=== PATIENT | female | born 1960 | race Caucasian/White ===

== ENCOUNTER → 2016-10-09 | Outpatient (CLI) | payer BC ==
[2016-10-09 15:30] LABS: Magnesium 1.9 mg/dL (1.6-2.3)
[2016-10-09 21:17] LABS: Hemoglobin A1C 5.2 % (4.2-6.1)
== END | disposition home or self-care (01) ==
LOC: LABWHC1 14:49
PROVIDERS: ATTEND Family Medicine
DX: Z00.00 Encounter for general adult medical examination without abnormal findings (principal); E55.9 Vitamin D deficiency, unspecified; E78.5 Hyperlipidemia, unspecified; E16.1 Other hypoglycemia; E83.42 Hypomagnesemia
CPT/HCPCS: 36415; 82306; 82550; 83036; 83525; 83735; 84443; 84450; 84460

== ENCOUNTER 2017-12-28 15:10 | Inpatient (IN) | payer BC, OTHER ==
[2017-12-28] MEDS ORDERED: SODIUM CHLORIDE 0.9% 1,000 ML IV ONE ×3 (15:42→17:34)
[2017-12-28 16:07] LABS: Basophils % (A) 0 %; Eosinophils % (A) 0 %; HCT 42.3 % (34.0-46.0); HGB 14.3 gm/dL (11.4-16.0); Lymphocytes # (A) 1.2 k/uL (1.0-4.8); Lymphocytes % (A) 8 %; MCH 32.3 pg (25.0-35.0); MCHC 33.9 g/dL (31.0-37.0); MCV 95.1 fL (80.0-100.0); Mean Platelet Volume 7.6; Monocytes # (A) 0.5 k/uL (0-1.0); Monocytes % (A) 3 %; Neutrophils # (A) 13.2 k/uL (1.3-7.7); Neutrophils % (A) 88 %; Platelet Count 297 k/uL (150-450); RBC 4.45 m/uL (3.80-5.40); RDW 13.5 % (11.5-15.5); WBC 15.1 k/uL (3.8-10.6)
[2017-12-28 16:17] LABS: Glucose,Whole Blood 108 mg/dL (75-99)
[2017-12-28 16:20] LABS: ALT 73 U/L (9-52); AST 250 U/L (14-36); Albumin 4.1 g/dL (3.5-5.0); Alkaline Phosphatase 122 U/L (38-126); Anion Gap 13 mmol/L; Blood Urea Nitrogen 18 mg/dL (7-17); Calcium 9.7 mg/dL (8.4-10.2); Carbon Dioxide 27 mmol/L (22-30); Chloride 104 mmol/L (98-107); Glucose 103 mg/dL (74-99); Potassium 4.5 mmol/L (3.5-5.1); Sodium 144 mmol/L (137-145); Total Protein 7.2 g/dL (6.3-8.2)
[2017-12-28 16:24] LABS: Amorphous Sediment,Urine Few /hpf; Appearance,Urine Turbid (Clear); Bacteria,Urine Moderate /hpf; Bilirubin,Urine Negative (Negative); Blood,Urine Moderate (Negative); Color,Urine Yellow; Glucose,Urine (UA) Negative (Negative); Hyaline Casts,Urine 67 /lpf (0-2); Ketones,Urine 1+ (Negative); Leukocyte Esterase,Urine Large (Negative); Mucus,Urine Few /hpf; Nitrite,Urine Negative (Negative); PH, Urine 5.5 (5.0-8.0); Protein,Urine 1+ (Negative); RBC,Urine 1 /hpf (0-5); Specific Gravity,Urine 1.023 (1.001-1.035); Squamous Epithelial Cell,Urine 7 /hpf (0-4); Urobilinogen,Urine <2.0 mg/dL (<2.0); WBC,Urine 35 /hpf (0-5)
[2017-12-28 16:25] LABS: Amphetamine Screen,Urine Not Detected (NotDetected); Barbiturate Screen,Urine Not Detected (NotDetected); Benzodiazepines Screen,Urine Detected (NotDetected); Cocaine Screen,Urine Not Detected (NotDetected); Methadone Screen, Urine Not Detected (NotDetected); Opiate Screen,Urine Detected (NotDetected); Oxycodone Screen, Urine Not Detected (NotDetected); Phencyclidine Screen,Urine Not Detected (NotDetected); Tricyclic Antidepressant,Urine Not Detected (NotDetected); Urn Cannabinoid Scrn Not Detected (NotDetected)
[2017-12-28 16:28] LABS: INR 1.1 (<1.2); Partial Thromboplastin Time 23.3 sec (22.0-30.0); Prothrombin Time 10.3 sec (9.0-12.0)
--- NOTE | 2017-12-28 16:33 | CT ---
EXAMINATION TYPE: CT brain shania mcghee con DATE OF EXAM: 12/28/2017 COMPARISON: NONE HISTORY: 57-year-old female with pain after Frequent falls. CT DLP: 1682.1 mGycm Automated exposure control for dose reduction was used. Technique: Examination of the head was done in axial plane without intravenous contrast. Coronal and sagittal reconstructions performed. CT of the cervical spine was obtained in axial plane without intravenous injection of contrast mater ial. Coronal and sagittal reformatted images were obtained from the axial views for evaluation of f ractures, spinal alignment and canal. FINDINGS: Head: There is no evidence of acute intracranial hemorrhage, acute ischemic changes, mass, mass-effect, or extra-axial fluid collection. There is no effacement of cerebral sulci or basal subarachnoid cister ns. There is no hydrocephalus. There is no midline shift. Escalante-white matter distinction is preserv ed. Partially empty sella. Rightward nasal septal deviation. Paranasal sinuses and mastoid air cells well pneumatized. No calvar ial fracture. Orbits and globes appear intact. Cervical spine: The alignment of the cervical spine is normal on coronal and reformatted images. There is no cranial vertebral abnormality. Fracture of the cervical spine is not seen. Limitation in assessment of the sp inal canal secondary to artifact from the patient's shoulders at C5 level and below. However, there d isc osteophyte complexes associated with moderate spondylitic change particularly at C5-C6 and C6-C7 causing at least moderate spinal canal stenosis. Scattered facet and uncovertebral joint degenerative change. Mild left neuroforaminal stenosis at C5- C6 and moderate on the left at C6-C7. No prevertebral or paravertebral soft tissue abnormality seen Sagittal and coronal reformatted images confirm above findings. COMBINED IMPRESSION: 1. No acute intracranial abnormality seen. 2. No acute fracture or malalignment of the cervical spine. Moderate spondylotic change C5-C6 and C6- C7 where moderate spinal canal stenoses may be present.
[2017-12-28 16:42] LABS: Troponin I <0.012 ng/mL (0.000-0.034)
--- NOTE | 2017-12-28 16:42 | XR ---
EXAMINATION TYPE: XR knee complete bilateral DATE OF EXAM: 12/28/2017 COMPARISON: NONE HISTORY: 57-year-old female with frequent falls, pain TECHNIQUE: 3 views each side FINDINGS: Tricompartmental degenerative change of the left. Medial and patellofemoral compartmental degenerativ e spurring on the right. Soft tissue thickening and reticulation's prepatellar region on the right as well as the left. Extensor mechanisms appear intact. No medial joint effusions. No acute fracture or dislocation. IMPRESSION: Prepatellar soft tissue contusions on both sides. 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 No acute osseous abnormality seen.
--- NOTE | 2017-12-28 16:48 | ED ---
Altered Mental Status HPI - General Source: patient Mode of arrival: EMS Limitations: no limitations <Melissa Varela - Last Filed: 12/28/17 16:53> <Kulwinder Mccray - Last Filed: 12/28/17 17:45> - General Chief Complaint: Altered Mental Status Stated Complaint: multiple falls Time Seen by Provider: 12/28/17 15:28 - History of Present Illness Initial Comments: 7 years old female comes in with the confusion, altered mental status and she said she's not herself and then she said she been falling multiple times she said balance is poor she hit her head against a hard surface complaining about injury to both of her elbows and both her knees because of the falls. Denies any chest pain no shortness of breath no abdominal pain denies any weakness of upper or lower extremity no symptoms of TIA or CVA. Complaining about generalized pain (Melissa Varela) - Related Data Home Medications Medication Instructions Recorded Confirmed DULoxetine HCL [Cymbalta] 60 mg PO BID 12/28/17 12/28/17 Allergies Allergy/AdvReac Type Severity Reaction Status Date / Time Penicillins Allergy Unknown Verified 12/28/17 15:47 Review of Systems ROS Other: All systems not noted in ROS Statement are negative. <Melissa Varela - Last Filed: 12/28/17 16:53> ROS Other: All systems not noted in ROS Statement are negative. <Kulwinder Mccray - Last Filed: 12/28/17 17:45> ROS Statement: Those systems with pertinent positive or pertinent negative responses have been documented in the HPI. Past Medical History Past Medical History: No Reported History History of Any Multi-Drug Resistant Organisms: None Reported Past Surgical History: Section, Tonsillectomy Additional Past Surgical History / Comment(s): bariatric surgery Past Psychological History: Anxiety, Depression Smoking Status: Former smoker Past Alcohol Use History: Daily <Melissa Varela - Last Filed: 12/28/17 16:53> General Exam Limitations: no limitations <Melissa Varela - Last Filed: 12/28/17 16:53> <Kulwinder Mccray - Last Filed: 12/28/17 17:45> - General Exam Comments Initial Comments: General: The patient is barely awake does answer questions appropriately looks tired, GCS is 15 Skin: Skin is warm and dry and no rashes or lesions are noted. Notice abrasions and old injury to both elbows and noticed erythema over both patellas ( she had multiple falls), no hematomas noticed over the scalp Eye: Pupils are equal, round and reactive to light, extra-ocular movements are intact; there is normal conjunctiva bilaterally. Ears, nose, mouth and throat: There are moist mucous membranes and no oral lesions. Neck: The neck is supple, there is no tenderness or JVD. Cardiovascular: There is a regular rate and rhythm. No murmur, rub or gallop is appreciated. Respiratory: To auscultation bilateral, no wheezing no rhonchi no distress respiratory rodriguez noticed Gastrointestinal: Soft, non-distended, non-tender abdomen without masses or organomegaly noted. There is no rebound or guarding present. Bowel sounds are unremarkable. Back: There is no tenderness to palpation in the midline. There is no obvious deformity. Musculoskeletal: Normal ROM, no tenderness, There is no pedal edema. There is no calf tenderness or swelling. No cords were appreciated. Neurological: CN II-XII intact, Cranial nerves III through XII are intact. There are no obvious motor or sensory deficits. Coordination appears grossly intact. Speech is normal. Psychiatric: Cooperative, appropriate mood & affect, normal judgment. (Melissa Varela) Course <Melissa Varela - Last Filed: 12/28/17 16:53> <Kulwinder Mccray - Last Filed: 12/28/17 17:45> Vital Signs 12/28/17 12/28/17 15:17 15:30 Temperature 99 F Pulse Rate 107 H 101 H Respiratory 16 16 Rate Blood Pressure 167/85 167/85 O2 Sat by Pulse 95 95 Oximetry EKG is sinus tachycardia heart rate is 17 NJ interval is 150 QRS duration is 84 QT/QTc is 364/485 review of this EKG reveals T-wave inversion in lead V3 no ST elevation or ST depression noticed in the other leads Patient is endorsed to Dr Álvarez at 5pm (Melissa Varela) - Reevaluation(s) Reevaluation #1: 12/28/17 17:34 I did reevaluate the patient after sign out, she clinically appears intoxicated. She is uncertain how long she was down but does admit to having multiple falls. Further history obtained from the patient's sister who is at bedside, she believes that her sister may be suicidal, she is uncertain if she took too much medication and her life. She states she does drink wine daily. Patient is placed on a CT was scale, psychiatry will be asked to evaluate the patient. (Kulwinder Mccray) Medical Decision Making - Lab Data Result diagrams: 12/28/17 15:32 12/28/17 15:32 <Melissa Varela - Last Filed: 12/28/17 16:53> - Lab Data Result diagrams: 12/28/17 15:32 12/28/17 15:32 <Kulwinder Mccray - Last Filed: 12/28/17 17:45> - Medical Decision Making 57-year-old female presenting with multiple falls and confusion. She has been taking pain medication and using alcohol for her pain. She has fibromyalgia and multiple chronic pain issues. Sister who is at bedside believes this may been suicidal attempt although the patient does not admit to suicidal ideation or attempt. She states she was simply trying to treat her pain. She was on the ground for unknown amount of time. Bilateral elbows and knees are contused. Head CT is negative for intracranial hemorrhage, CT cervical spine negative for fracture or subluxation. Laboratory studies reveal leukocytosis 15,000, AST is elevated 250 ALT 73, as is consistent with alcohol hepatitis. CK is significantly elevated at 12,562. Patient receives 2 L normal saline bolus and is placed at 200 mL of normal saline per hour for rhabdomyolysis. She will be admitted for further evaluation and treatment. Psychiatry will be placed on consult for concern of suicide attempt and drug abuse. (Kulwinder Mccray) - Lab Data Lab Results 12/28/17 12/28/17 12/28/17 Range/Units 15:30 15:32 15:32 WBC 15.1 H (3.8-10.6) k/uL RBC 4.45 (3.80-5.40) m/uL Hgb 14.3 (11.4-16.0) gm/dL Hct 42.3 (34.0-46.0) % MCV 95.1 (80.0-100.0) fL MCH 32.3 (25.0-35.0) pg MCHC 33.9 (31.0-37.0) g/dL RDW 13.5 (11.5-15.5) % Plt Count 297 (150-450) k/uL Neutrophils % 88 % Lymphocytes % 8 % Monocytes % 3 % Eosinophils % 0 % Basophils % 0 % Neutrophils # 13.2 H (1.3-7.7) k/uL Lymphocytes # 1.2 (1.0-4.8) k/uL Monocytes # 0.5 (0-1.0) k/uL Eosinophils # 0.0 (0-0.7) k/uL Basophils # 0.0 (0-0.2) k/uL PT (9.0-12.0) sec INR (<1.2) APTT (22.0-30.0) sec Sodium (137-145) mmol/L Potassium (3.5-5.1) mmol/L Chloride (98-107) mmol/L Carbon Dioxide (22-30) mmol/L Anion Gap mmol/L BUN (7-17) mg/dL Creatinine (0.52-1.04) mg/dL Est GFR (CKD-EPI)AfAm (>60 ml/min/1.73 sqM) Est GFR (CKD-EPI)NonAf (>60 ml/min/1.73 sqM) Glucose (74-99) mg/dL POC Glucose (mg/dL) (75-99) mg/dL POC Glu Street Worker ID Calcium (8.4-10.2) mg/dL Total Bilirubin (0.2-1.3) mg/dL AST (14-36) U/L ALT (9-52) U/L Alkaline Phosphatase (38-126) U/L Total Creatine Kinase 55537 H (30-135) U/L CK-MB (CK-2) 54.9 H* (0.0-2.4) ng/mL CK-MB (CK-2) Rel Index Troponin I <0.012 (0.000-0.034) ng/mL Total Protein (6.3-8.2) g/dL Albumin (3.5-5.0) g/dL Urine Color Urine Appearance (Clear) Urine pH (5.0-8.0) Ur Specific [place] (1.001-1.035) Urine Protein (Negative) Urine Glucose (UA) (Negative) Urine Ketones (Negative) Urine Blood (Negative) Urine Nitrite (Negative) Urine Bilirubin (Negative) Urine Urobilinogen (<2.0) mg/dL Ur Leukocyte Esterase (Negative) Urine RBC (0-5) /hpf Urine WBC (0-5) /hpf Ur Squamous Epith Cells (0-4) /hpf Amorphous Sediment (None) /hpf Urine Bacteria (None) /hpf Hyaline Casts (0-2) /lpf Urine Mucus (None) /hpf Urine Opiates Screen (NotDetected) Ur Oxycodone Screen (NotDetected) Urine Methadone Screen (NotDetected) Ur Propoxyphene Screen (NotDetected) Ur Barbiturates Screen (NotDetected) U Tricyclic Antidepress (NotDetected) Ur Phencyclidine Scrn (NotDetected) Ur Amphetamines Screen (NotDetected) U Methamphetamines Scrn (NotDetected) U Benzodiazepines Scrn (NotDetected) Urine Cocaine Screen (NotDetected) U Marijuana (THC) Screen (NotDetected) Serum Alcohol <10 mg/dL 12/28/17 12/28/17 12/28/17 Range/Units 15:32 15:32 15:32 WBC (3.8-10.6) k/uL RBC (3.80-5.40) m/uL Hgb (11.4-16.0) gm/dL Hct (34.0-46.0) % MCV (80.0-100.0) fL MCH (25.0-35.0) pg MCHC (31.0-37.0) g/dL RDW (11.5-15.5) % Plt Count (150-450) k/uL Neutrophils % % Lymphocytes % % Monocytes % % Eosinophils % % Basophils % % Neutrophils # (1.3-7.7) k/uL Lymphocytes # (1.0-4.8) k/uL Monocytes # (0-1.0) k/uL Eosinophils # (0-0.7) k/uL Basophils # (0-0.2) k/uL PT 10.3 (9.0-12.0) sec INR 1.1 (<1.2) APTT 23.3 (22.0-30.0) sec Sodium 144 (137-145) mmol/L Potassium 4.5 (3.5-5.1) mmol/L Chloride 104 (98-107) mmol/L Carbon Dioxide 27 (22-30) mmol/L Anion Gap 13 mmol/L BUN 18 H (7-17) mg/dL Creatinine 0.73 (0.52-1.04) mg/dL Est GFR (CKD-EPI)AfAm >90 (>60 ml/min/1.73 sqM) Est GFR (CKD-EPI)NonAf >90 (>60 ml/min/1.73 sqM) Glucose 103 H (74-99) mg/dL POC Glucose (mg/dL) (75-99) mg/dL POC Glu Street Worker ID Calcium 9.7 (8.4-10.2) mg/dL Total Bilirubin 1.0 (0.2-1.3) mg/dL AST 250 H (14-36) U/L ALT 73 H (9-52) U/L Alkaline Phosphatase 122 (38-126) U/L Total Creatine Kinase (30-135) U/L CK-MB (CK-2) (0.0-2.4) ng/mL CK-MB (CK-2) Rel Index Troponin I (0.000-0.034) ng/mL Total Protein 7.2 (6.3-8.2) g/dL Albumin 4.1 (3.5-5.0) g/dL Urine Color Yellow Urine Appearance Turbid H (Clear) Urine pH 5.5 (5.0-8.0) Ur Specific [place] 1.023 (1.001-1.035) Urine Protein 1+ H (Negative) Urine Glucose (UA) Negative (Negative) Urine Ketones 1+ H (Negative) Urine Blood Moderate H (Negative) Urine Nitrite Negative (Negative) Urine Bilirubin Negative (Negative) Urine Urobilinogen <2.0 (<2.0) mg/dL Ur Leukocyte Esterase Large H (Negative) Urine RBC 1 (0-5) /hpf Urine WBC 35 H (0-5) /hpf Ur Squamous Epith Cells 7 H (0-4) /hpf Amorphous Sediment Few H (None) /hpf Urine Bacteria Moderate H (None) /hpf Hyaline Casts 67 H (0-2) /lpf Urine Mucus Few H (None) /hpf Urine Opiates Screen Detected H (NotDetected) Ur Oxycodone Screen Not Detected (NotDetected) Urine Methadone Screen Not Detected (NotDetected) Ur Propoxyphene Screen Not Detected (NotDetected) Ur Barbiturates Screen Not Detected (NotDetected) U Tricyclic Antidepress Not Detected (NotDetected) Ur Phencyclidine Scrn Not Detected (NotDetected) Ur Amphetamines Screen Not Detected (NotDetected) U Methamphetamines Scrn Not Detected (NotDetected) U Benzodiazepines Scrn Detected H (NotDetected) Urine Cocaine Screen Not Detected (NotDetected) U Marijuana (THC) Screen Not Detected (NotDetected) Serum Alcohol mg/dL 12/28/17 Range/Units 16:02 WBC (3.8-10.6) k/uL RBC (3.80-5.40) m/uL Hgb (11.4-16.0) gm/dL Hct (34.0-46.0) % MCV (80.0-100.0) fL MCH (25.0-35.0) pg MCHC (31.0-37.0) g/dL RDW (11.5-15.5) % Plt Count (150-450) k/uL Neutrophils % % Lymphocytes % % Monocytes % % Eosinophils % % Basophils % % Neutrophils # (1.3-7.7) k/uL Lymphocytes # (1.0-4.8) k/uL Monocytes # (0-1.0) k/uL Eosinophils # (0-0.7) k/uL Basophils # (0-0.2) k/uL PT (9.0-12.0) sec INR (<1.2) APTT (22.0-30.0) sec Sodium (137-145) mmol/L Potassium (3.5-5.1) mmol/L Chloride (98-107) mmol/L Carbon Dioxide (22-30) mmol/L Anion Gap mmol/L BUN (7-17) mg/dL Creatinine (0.52-1.04) mg/dL Est GFR (CKD-EPI)AfAm (>60 ml/min/1.73 sqM) Est GFR (CKD-EPI)NonAf (>60 ml/min/1.73 sqM) Glucose (74-99) mg/dL POC Glucose (mg/dL) 108 H (75-99) mg/dL POC Glu Street Worker ID Danielle Pizano Calcium (8.4-10.2) mg/dL Total Bilirubin (0.2-1.3) mg/dL AST (14-36) U/L ALT (9-52) U/L Alkaline Phosphatase (38-126) U/L Total Creatine Kinase (30-135) U/L CK-MB (CK-2) (0.0-2.4) ng/mL CK-MB (CK-2) Rel Index Troponin I (0.000-0.034) ng/mL Total Protein (6.3-8.2) g/dL Albumin (3.5-5.0) g/dL Urine Color Urine Appearance (Clear) Urine pH (5.0-8.0) Ur Specific [place] (1.001-1.035) Urine Protein (Negative) Urine Glucose (UA) (Negative) Urine Ketones (Negative) Urine Blood (Negative) Urine Nitrite (Negative) Urine Bilirubin (Negative) Urine Urobilinogen (<2.0) mg/dL Ur Leukocyte Esterase (Negative) Urine RBC (0-5) /hpf Urine WBC (0-5) /hpf Ur Squamous Epith Cells (0-4) /hpf Amorphous Sediment (None) /hpf Urine Bacteria (None) /hpf Hyaline Casts (0-2) /lpf Urine Mucus (None) /hpf Urine Opiates Screen (NotDetected) Ur Oxycodone Screen (NotDetected) Urine Methadone Screen (NotDetected) Ur Propoxyphene Screen (NotDetected) Ur Barbiturates Screen (NotDetected) U Tricyclic Antidepress (NotDetected) Ur Phencyclidine Scrn (NotDetected) Ur Amphetamines Screen (NotDetected) U Methamphetamines Scrn (NotDetected) U Benzodiazepines Scrn (NotDetected) Urine Cocaine Screen (NotDetected) U Marijuana (THC) Screen (NotDetected) Serum Alcohol mg/dL Disposition <Melissa Varela - Last Filed: 12/28/17 16:53> Decision to Admit Reason: Admit from EC Decision Date: 12/28/17 Decision Time: 17:45 <Kulwinder Mccray - Last Filed: 12/28/17 17:45> Clinical Impression: Multiple falls, Altered mental status, Rhabdomyolysis, Polysubstance abuse Disposition: ADMITTED IP TO THIS HOSP Condition: Serious Referrals: Diana Page MD [Primary Care Provider] - 1-2 days
[2017-12-28 16:56] LABS: Creatine Kinase 12562 U/L (30-135); Creatine Kinase MB 54.9 ng/mL (0.0-2.4)
[2017-12-28] MEDS ORDERED: LEVOFLOXACIN 500MG-D5W PMX 500 MG in DEXTROSE/WATER 1 100ML.BAG IVPB STA (17:00)
[2017-12-28] MEDS ORDERED: LORazepam 2 MG/ML INJ IV PRN ×3 (17:34)
[2017-12-28] MEDS ORDERED: THIAMINE 100 MG/ML 2 ML VIAL IM STA (17:34)
[2017-12-28] MEDS ORDERED: NALOXONE 0.4 MG/ML 1 ML VIAL IV PRN ×2 (17:45→22:11)
[2017-12-28] MEDS: SODIUM CHLORIDE 0.9% 1,000 ML IV SCH ×3 (17:49→20:25)
--- NOTE | 2017-12-28 18:01 | XR ---
EXAMINATION TYPE: XR elbow complete bilateral, 3 views each side DATE OF EXAM: 12/28/2017 COMPARISON: NONE HISTORY: 57-year-old female frequent falls, abrasions bilateral elbows, pain FINDINGS: There is some bony irregularity along the right lateral condyle. Mild bony spurring at the left media l epicondyle. Some mild olecranon soft tissue swelling on both sides. No acute fracture identified. N o significant elbow joint effusion on the right. Suboptimal obliquity on the lateral view of the left limits assessment of elbow joint effusion. IMPRESSION: 1. Olecranon soft tissue swelling on both sides. 2. No significant elbow joint effusion on the right. Suboptimal positioning on the lateral view of th e left limiting assessment for left elbow joint effusion. 3. Some bony spurring suggests common extensor tendinosis on the right and common flexor tendinosis o n the left. 4. No acute osseous abnormality seen.
--- NOTE | 2017-12-28 18:04 | XR ---
EXAMINATION TYPE: XR chest 2V DATE OF EXAM: 12/28/2017 COMPARISON: None HISTORY: 57-year-old female frequent falls, altered mental status, confusion TECHNIQUE: Frontal and lateral views FINDINGS: The cardiomediastinal silhouette, aorta, and pulmonary vasculature are within normal limits. Mild int erstitial prominence as a chronic appearance. Otherwise, lungs and pleural spaces are clear. IMPRESSION: Chronic-appearing changes, possible bronchitis or asthma. Otherwise, no acute cardiopulmonary process .
[2017-12-28] MEDS: THIAMINE 100 MG TAB PO SCH (20:24)
[2017-12-28] MEDS ORDERED: ALBUTEROL NEBULIZED 2.5 MG/3 ML INHALATION PRN (21:50)
--- NOTE | 2017-12-28 22:05 | P.HPIM ---
History of Present Illness H&P Date: 12/28/17 Chief Complaint: Questionable syncope Admitted to the hospital for 4 question about seizures the patient states that she has been falling and she thought that she has been having seizures the patient did have a history of seizure in the past patient is on multiple sedatives appears to be very tearful and emotional but denies any suicidal ideation at this time bu t states that she is depressed Patient states that she could have sees but not a very good historian at this time and unable to give much more specified history about losing consciousness or shaking episodes Is not complaining of any chest pain or shortness breath but she complains of generalized pain and generalized weakness Review of systems since systems as reviewed all negative and positive findings as per HPI Past Medical History: Anxiety depression question about seizures History of Any Multi-Drug Resistant Organisms: None Reported Past Surgical History: Section, Tonsillectomy Additional Past Surgical History / Comment(s): bariatric surgery Past Psychological History: Anxiety, Depression Smoking Status: Former smoker Past Alcohol Use History: Daily Constitutional: No acute distress, conversant, pleasant Eyes: Anicteric sclerae, moist conjunctiva, no lid-lag PERRLA ENMT: NC/AT Oropharynx clear, no erythema, exudates Neck: Supple, FROM, no masses, or JVD No carotid bruits No thyromegaly Lungs: Clear to auscultation Clear to percussion Normal respiratory effort, no accessory muscle use Cardiovascular: Heart regular in rate and rhythm, No murmurs, gallops, or rubs No peripheral edema Abdominal: Soft Nontender, no guarding, rebound or rigidity Abdomen moving with respiration Normoactive bowel sounds No hepatomegaly, No splenomegaly No palpable mass No abdominal wall hernia noted Skin: Normal temperature, tone, texture, turgor No induration No subcutaneous nodules No rash, lesions No ulcers Extremities: No digital cyanosis No clubbing Pedal pulses intact and symmetrical Radial pulses intact and symmetrical Normal gait and station No calf tenderness Psychiatric:Alert and oriented to person, place and time Appropriate affect Intact judgement Neuro: Generalized weakness Laboratory Results - last 24 hr 12/28/17 12/28/17 12/28/17 15:30 15:32 15:32 WBC 15.1 H RBC 4.45 Hgb 14.3 Hct 42.3 MCV 95.1 MCH 32.3 MCHC 33.9 RDW 13.5 Plt Count 297 Neutrophils % 88 Lymphocytes % 8 Monocytes % 3 Eosinophils % 0 Basophils % 0 Neutrophils # 13.2 H Lymphocytes # 1.2 Monocytes # 0.5 Eosinophils # 0.0 Basophils # 0.0 PT INR APTT Sodium Potassium Chloride Carbon Dioxide Anion Gap BUN Creatinine Est GFR (CKD-EPI)AfAm Est GFR (CKD-EPI)NonAf Glucose POC Glucose (mg/dL) POC Glu Fermentation Operator ID Calcium Total Bilirubin AST ALT Alkaline Phosphatase Total Creatine Kinase 07938 H CK-MB (CK-2) 54.9 H* CK-MB (CK-2) Rel Index Troponin I <0.012 Total Protein Albumin Urine Color Urine Appearance Urine pH Ur Specific [place] Urine Protein Urine Glucose (UA) Urine Ketones Urine Blood Urine Nitrite Urine Bilirubin Urine Urobilinogen Ur Leukocyte Esterase Urine RBC Urine WBC Ur Squamous Epith Cells Amorphous Sediment Urine Bacteria Hyaline Casts Urine Mucus Urine Opiates Screen Ur Oxycodone Screen Urine Methadone Screen Ur Propoxyphene Screen Ur Barbiturates Screen U Tricyclic Antidepress Ur Phencyclidine Scrn Ur Amphetamines Screen U Methamphetamines Scrn U Benzodiazepines Scrn Urine Cocaine Screen U Marijuana (THC) Screen Serum Alcohol <10 12/28/17 12/28/17 12/28/17 15:32 15:32 15:32 WBC RBC Hgb Hct MCV MCH MCHC RDW Plt Count Neutrophils % Lymphocytes % Monocytes % Eosinophils % Basophils % Neutrophils # Lymphocytes # Monocytes # Eosinophils # Basophils # PT 10.3 INR 1.1 APTT 23.3 Sodium 144 Potassium 4.5 Chloride 104 Carbon Dioxide 27 Anion Gap 13 BUN 18 H Creatinine 0.73 Est GFR (CKD-EPI)AfAm >90 Est GFR (CKD-EPI)NonAf >90 Glucose 103 H POC Glucose (mg/dL) POC Glu Fermentation Operator ID Calcium 9.7 Total Bilirubin 1.0 AST 250 H ALT 73 H Alkaline Phosphatase 122 Total Creatine Kinase CK-MB (CK-2) CK-MB (CK-2) Rel Index Troponin I Total Protein 7.2 Albumin 4.1 Urine Color Yellow Urine Appearance Turbid H Urine pH 5.5 Ur Specific [place] 1.023 Urine Protein 1+ H Urine Glucose (UA) Negative Urine Ketones 1+ H Urine Blood Moderate H Urine Nitrite Negative Urine Bilirubin Negative Urine Urobilinogen <2.0 Ur Leukocyte Esterase Large H Urine RBC 1 Urine WBC 35 H Ur Squamous Epith Cells 7 H Amorphous Sediment Few H Urine Bacteria Moderate H Hyaline Casts 67 H Urine Mucus Few H Urine Opiates Screen Detected H Ur Oxycodone Screen Not Detected Urine Methadone Screen Not Detected Ur Propoxyphene Screen Not Detected Ur Barbiturates Screen Not Detected U Tricyclic Antidepress Not Detected Ur Phencyclidine Scrn Not Detected Ur Amphetamines Screen Not Detected U Methamphetamines Scrn Not Detected U Benzodiazepines Scrn Detected H Urine Cocaine Screen Not Detected U Marijuana (THC) Screen Not Detected Serum Alcohol 12/28/17 16:02 WBC RBC Hgb Hct MCV MCH MCHC RDW Plt Count Neutrophils % Lymphocytes % Monocytes % Eosinophils % Basophils % Neutrophils # Lymphocytes # Monocytes # Eosinophils # Basophils # PT INR APTT Sodium Potassium Chloride Carbon Dioxide Anion Gap BUN Creatinine Est GFR (CKD-EPI)AfAm Est GFR (CKD-EPI)NonAf Glucose POC Glucose (mg/dL) 108 H POC Glu Fermentation Operator ID [place], Danielle Calcium Total Bilirubin AST ALT Alkaline Phosphatase Total Creatine Kinase CK-MB (CK-2) CK-MB (CK-2) Rel Index Troponin I Total Protein Albumin Urine Color Urine Appearance Urine pH Ur Specific [place] Urine Protein Urine Glucose (UA) Urine Ketones Urine Blood Urine Nitrite Urine Bilirubin Urine Urobilinogen Ur Leukocyte Esterase Urine RBC Urine WBC Ur Squamous Epith Cells Amorphous Sediment Urine Bacteria Hyaline Casts Urine Mucus Urine Opiates Screen Ur Oxycodone Screen Urine Methadone Screen Ur Propoxyphene Screen Ur Barbiturates Screen U Tricyclic Antidepress Ur Phencyclidine Scrn Ur Amphetamines Screen U Methamphetamines Scrn U Benzodiazepines Scrn Urine Cocaine Screen U Marijuana (THC) Screen Serum Alcohol Vital Signs - 24 hr 12/28/17 12/28/17 12/28/17 15:17 15:30 17:59 Temperature 99 F Pulse Rate 107 H 101 H 102 H Pulse Rate [ Pulse Oximetery ] Respiratory 16 16 16 Rate Blood Pressure 167/85 167/85 151/67 Blood Pressure [Right Arm] O2 Sat by Pulse 95 95 96 Oximetry 12/28/17 12/28/17 18:40 19:00 Temperature 98.9 F 98.6 F Pulse Rate Pulse Rate [ 107 H Pulse Oximetery ] Respiratory 14 Rate Blood Pressure Blood Pressure 154/75 [Right Arm] O2 Sat by Pulse 99 Oximetry Rhabdomyolysis, currently no evidence of acute renal failure we will continue patient on aggressive IV hydration Recurrent falls and question about syncopal episodes versus seizures These are likely due to polypharmacy but the patient denies any suicidal at time or overdose at this time Psychiatric has been consulted We will also check MRI of the brain Consider neurology evaluation We'll monitor for any signs or symptoms of bile colored withdrawals the patient is currently on Ativan Fibromyalgia We put the patient on telemetry and observe Past Medical History Past Medical History: No Reported History Additional Past Medical History / Comment(s): Degenerative Disc Disease, Fibromyalgia, Chronic Back Pain History of Any Multi-Drug Resistant Organisms: None Reported Past Surgical History: Section, Tonsillectomy Additional Past Surgical History / Comment(s): bariatric surgery Past Anesthesia/Blood Transfusion Reactions: Postoperative Nausea & Vomiting ( PONV) Past Psychological History: Anxiety, Depression Smoking Status: Former smoker Past Alcohol Use History: Daily Additional Past Alcohol Use History / Comment(s): patient states she was taken off of her pain pills and now has one drink a night to try to help her go to sleep Past Drug Use History: None Reported - Past Family History Mother Family Medical History: Cancer Additional Family Medical History / Comment(s): breast cancer, back problems Father Family Medical History: Congestive Heart Failure (CHF) Medications and Allergies Home Medications Medication Instructions Recorded Confirmed Type ALPRAZolam [Xanax] 1 mg PO TID PRN 12/28/17 12/28/17 History Albuterol Sulfate [Proair Hfa] 2 puff INHALATION Q4H PRN 12/28/17 12/28/17 History DULoxetine HCL [Cymbalta] 60 mg PO BID 12/28/17 12/28/17 History Allergies Allergy/AdvReac Type Severity Reaction Status Date / Time Penicillins Allergy Rash/Hives Verified 12/28/17 20:07 Physical Exam Vitals: Vital Signs Temp Pulse Pulse Resp BP BP Pulse Ox 12/28/17 19:00 98.6 F 107 H 14 154/75 99 12/28/17 18:40 98.9 F 12/28/17 17:59 102 H 16 151/67 96 12/28/17 15:30 101 H 16 167/85 95 12/28/17 15:17 99 F 107 H 16 167/85 95 Intake and Output 12/28/17 12/28/17 12/28/17 06:59 14:59 22:59 Intake Total 200 Balance 200 Intake: IV 200 Sodium Chloride 0.9% 1, 200 000 ml @ 200 mls/hr IV . Q5H [facility] Rx#:[id number] Other: Weight 99.79 kg Results CBC & Chem 7: 12/28/17 15:32 12/28/17 15:32 Labs: Abnormal Lab Results - Last 24 Hours (Table) 12/28/17 12/28/17 12/28/17 Range/Units 15:32 15:32 15:32 WBC 15.1 H (3.8-10.6) k/uL Neutrophils # 13.2 H (1.3-7.7) k/uL BUN 18 H (7-17) mg/dL Glucose 103 H (74-99) mg/dL POC Glucose (mg/dL) (75-99) mg/dL AST 250 H (14-36) U/L ALT 73 H (9-52) U/L Total Creatine Kinase 97529 H (30-135) U/L CK-MB (CK-2) 54.9 H* (0.0-2.4) ng/mL Urine Appearance (Clear) Urine Protein (Negative) Urine Ketones (Negative) Urine Blood (Negative) Ur Leukocyte Esterase (Negative) Urine WBC (0-5) /hpf Ur Squamous Epith Cells (0-4) /hpf Amorphous Sediment (None) /hpf Urine Bacteria (None) /hpf Hyaline Casts (0-2) /lpf Urine Mucus (None) /hpf Urine Opiates Screen (NotDetected) U Benzodiazepines Scrn (NotDetected) 12/28/17 12/28/17 Range/Units 15:32 16:02 WBC (3.8-10.6) k/uL Neutrophils # (1.3-7.7) k/uL BUN (7-17) mg/dL Glucose (74-99) mg/dL POC Glucose (mg/dL) 108 H (75-99) mg/dL AST (14-36) U/L ALT (9-52) U/L Total Creatine Kinase (30-135) U/L CK-MB (CK-2) (0.0-2.4) ng/mL Urine Appearance Turbid H (Clear) Urine Protein 1+ H (Negative) Urine Ketones 1+ H (Negative) Urine Blood Moderate H (Negative) Ur Leukocyte Esterase Large H (Negative) Urine WBC 35 H (0-5) /hpf Ur Squamous Epith Cells 7 H (0-4) /hpf Amorphous Sediment Few H (None) /hpf Urine Bacteria Moderate H (None) /hpf Hyaline Casts 67 H (0-2) /lpf Urine Mucus Few H (None) /hpf Urine Opiates Screen Detected H (NotDetected) U Benzodiazepines Scrn Detected H (NotDetected) Thrombosis Risk Factor Assmnt - Choose All That Apply Any of the Below Risk Factors Present?: Yes Each Factor Represents 1 point: Age 41-60 years, Obesity (BMI >25) Other Risk Factors: No Other congenital or acquired thrombophilia - If yes, enter type in comment: No Thrombosis Risk Factor Assessment Total Risk Factor Score: 2 Thrombosis Risk Factor Assessment Level: Low Risk
[2017-12-28] MEDS ORDERED: MAG HYDROX/AL HYDROX/SIMETH 30 ML CUP PO PRN (22:11)
[2017-12-28] MEDS ORDERED: ONDANSETRON 4 MG/2 ML VIAL IVP PRN (22:11)
[2017-12-29 01:51] LABS: Creatine Kinase MB 23.3 ng/mL (0.0-2.4)
[2017-12-29] MEDS: ALPRAZolam 0.5 MG TAB PO PRN ×2 (02:08→11:59)
[2017-12-29] MEDS: SODIUM CHLORIDE 0.9% 1,000 ML IV SCH ×4 (02:08→22:07)
[2017-12-29 06:06] LABS: Basophils % (A) 0 %; Eosinophils # (A) 0.1 k/uL (0-0.7); Eosinophils % (A) 1 %; HGB 11.4 gm/dL (11.4-16.0); Lymphocytes # (A) 2.1 k/uL (1.0-4.8); Lymphocytes % (A) 20 %; MCH 32.7 pg (25.0-35.0); MCHC 33.6 g/dL (31.0-37.0); MCV 97.3 fL (80.0-100.0); Monocytes # (A) 0.4 k/uL (0-1.0); Monocytes % (A) 4 %; Neutrophils # (A) 7.4 k/uL (1.3-7.7); Neutrophils % (A) 73 %; Platelet Count 249 k/uL (150-450); RDW 13.8 % (11.5-15.5); WBC 10.1 k/uL (3.8-10.6)
[2017-12-29 06:11] LABS: ALT 56 U/L (9-52); AST 141 U/L (14-36); Albumin 2.8 g/dL (3.5-5.0); Alkaline Phosphatase 77 U/L (38-126); Anion Gap 10 mmol/L; Blood Urea Nitrogen 12 mg/dL (7-17); Calcium 8.2 mg/dL (8.4-10.2); Carbon Dioxide 22 mmol/L (22-30); Chloride 110 mmol/L (98-107); Glucose 83 mg/dL (74-99); Potassium 3.6 mmol/L (3.5-5.1); Sodium 142 mmol/L (137-145); Total Bilirubin 0.6 mg/dL (0.2-1.3); Total Protein 5.3 g/dL (6.3-8.2)
[2017-12-29 06:33] LABS: Creatine Kinase MB 17.5 ng/mL (0.0-2.4)
[2017-12-29] MEDS: cefTRIAXone IN SWFI 1,000 MG/10 ML SYRINGE IVP SCH (07:53)
[2017-12-29] MEDS: levETIRAcetam IV 500 MG in SODIUM CHLORIDE 0.9% 100 ML IVPB SCH ×2 (08:03→20:34)
[2017-12-29] MEDS: ACETAMINOPHEN TAB 325 MG TAB PO PRN ×2 (08:04→20:35)
[2017-12-29] MEDS ORDERED: DULoxetine HCL 60 MG CAPSULE.DR PO SCH (09:00)
--- NOTE | 2017-12-29 09:55 | P.PN ---
Subjective Progress Note Date: 12/29/17 Principal diagnosis: Seizures Patient is doing well, no seizures overnight. Objective - Vital Signs Vital signs: Vital Signs Temp 97.7 F 12/29/17 08:00 Pulse 100 12/29/17 08:00 Resp 16 12/29/17 08:00 BP 139/71 12/29/17 08:00 Pulse Ox 99 12/29/17 08:00 Intake & Output 12/28/17 12/29/17 12/29/17 18:59 06:59 18:59 Intake Total 1400 Output Total 600 Balance 800 Weight 99.79 kg 62 kg Intake: IV 1400 Sodium Chloride 0.9% 1, 1400 000 ml @ 200 mls/hr IV . Q5H [facility] Rx#:[id number] Output: Urine 600 Other: Voiding Method Bedpan # Voids 1 - Exam Constitutional: No acute distress, conversant, pleasant Eyes:Anicteric sclerae, moist conjunctiva, no lid-lag, PERRLA, ENMT: Oropharynx clear, no erythema, exudates Neck: Supple, FROM, no masses, or JVD, No carotid bruits, No thyromegaly Lungs: Clear to auscultation, Clear to percussion, Normal respiratory effort, no accessory muscle use Cardiovascular: Heart regular in rate and rhythm, No murmurs, gallops, or rubs, No peripheral edema Abdominal: Soft, Nontender, no guarding, rebound or rigidity, Normoactive bowel sounds, No hepatomegaly, No splenomegaly, No palpable mass Skin: Normal temperature, tone, texture, turgor, no induration, No subcutaneous nodules, No rash, lesions, No ulcers Extremities: No digital cyanosis, No clubbing, Pedal pulses intact and symmetrical, Radial pulses intact and symmetrical, No calf tenderness Psychiatric: Alert and oriented to person, place and time, appropriate affect, intact judgement Neuro: Muscles Strength 5/5 in all 4 extremities, Sensation to light touch grossly present throughout, Cranial nerves II-XII grossly intact, no focal sensory deficits - Labs CBC & Chem 7: 12/29/17 05:16 12/29/17 05:16 Labs: Abnormal Lab Results - Last 24 Hours (Table) 12/28/17 12/28/17 12/28/17 Range/Units 15:32 15:32 15:32 WBC 15.1 H (3.8-10.6) k/uL RBC (3.80-5.40) m/uL Neutrophils # 13.2 H (1.3-7.7) k/uL Chloride (98-107) mmol/L BUN 18 H (7-17) mg/dL Glucose 103 H (74-99) mg/dL POC Glucose (mg/dL) (75-99) mg/dL Calcium (8.4-10.2) mg/dL AST 250 H (14-36) U/L ALT 73 H (9-52) U/L Total Creatine Kinase 92054 H (30-135) U/L CK-MB (CK-2) 54.9 H* (0.0-2.4) ng/mL Total Protein (6.3-8.2) g/dL Albumin (3.5-5.0) g/dL Urine Appearance (Clear) Urine Protein (Negative) Urine Ketones (Negative) Urine Blood (Negative) Ur Leukocyte Esterase (Negative) Urine WBC (0-5) /hpf Ur Squamous Epith Cells (0-4) /hpf Amorphous Sediment (None) /hpf Urine Bacteria (None) /hpf Hyaline Casts (0-2) /lpf Urine Mucus (None) /hpf Urine Opiates Screen (NotDetected) U Benzodiazepines Scrn (NotDetected) 12/28/17 12/28/17 12/29/17 Range/Units 15:32 16:02 00:57 WBC (3.8-10.6) k/uL RBC (3.80-5.40) m/uL Neutrophils # (1.3-7.7) k/uL Chloride (98-107) mmol/L BUN (7-17) mg/dL Glucose (74-99) mg/dL POC Glucose (mg/dL) 108 H (75-99) mg/dL Calcium (8.4-10.2) mg/dL AST (14-36) U/L ALT (9-52) U/L Total Creatine Kinase 6717 H (30-135) U/L CK-MB (CK-2) 23.3 H* (0.0-2.4) ng/mL Total Protein (6.3-8.2) g/dL Albumin (3.5-5.0) g/dL Urine Appearance Turbid H (Clear) Urine Protein 1+ H (Negative) Urine Ketones 1+ H (Negative) Urine Blood Moderate H (Negative) Ur Leukocyte Esterase Large H (Negative) Urine WBC 35 H (0-5) /hpf Ur Squamous Epith Cells 7 H (0-4) /hpf Amorphous Sediment Few H (None) /hpf Urine Bacteria Moderate H (None) /hpf Hyaline Casts 67 H (0-2) /lpf Urine Mucus Few H (None) /hpf Urine Opiates Screen Detected H (NotDetected) U Benzodiazepines Scrn Detected H (NotDetected) 12/29/17 12/29/17 12/29/17 Range/Units 05:16 05:16 05:16 WBC (3.8-10.6) k/uL RBC 3.50 L (3.80-5.40) m/uL Neutrophils # (1.3-7.7) k/uL Chloride 110 H (98-107) mmol/L BUN (7-17) mg/dL Glucose (74-99) mg/dL POC Glucose (mg/dL) (75-99) mg/dL Calcium 8.2 L (8.4-10.2) mg/dL AST 141 H (14-36) U/L ALT 56 H (9-52) U/L Total Creatine Kinase 5619 H (30-135) U/L CK-MB (CK-2) 17.5 H* (0.0-2.4) ng/mL Total Protein 5.3 L (6.3-8.2) g/dL Albumin 2.8 L (3.5-5.0) g/dL Urine Appearance (Clear) Urine Protein (Negative) Urine Ketones (Negative) Urine Blood (Negative) Ur Leukocyte Esterase (Negative) Urine WBC (0-5) /hpf Ur Squamous Epith Cells (0-4) /hpf Amorphous Sediment (None) /hpf Urine Bacteria (None) /hpf Hyaline Casts (0-2) /lpf Urine Mucus (None) /hpf Urine Opiates Screen (NotDetected) U Benzodiazepines Scrn (NotDetected) Microbiology - Last 24 Hours (Table) 12/28/17 15:32 Urine Culture - Preliminary Urine,Catheterized Assessment and Plan Plan: #1 Rhabdomyolysis Continue IV fluids Likely secondary to seizures and falls #2 Recurrent falls and question about syncopal episodes versus seizures Likely due to polypharmacy versus benzodiazepine withdrawal Psychiatry and neurology consultation Pending MRI of the brain #3 UTI: Continue ceftriaxone #4 Fibromyalgia: Continue Cymbalta
[2017-12-29] MEDS: THIAMINE 100 MG TAB PO SCH ×2 (11:59→16:46)
--- NOTE | 2017-12-29 16:30 | P.CN ---
Psychiatric Consult - . Consult date: 12/29/17 Consult:: 12/29/17 16:16 Patient was seen for a psych consult regarding "polysubstance abuse, possible suicide attempt". She was admitted to the hospital with a diagnosis of rhabdomyolysis. Patient said she was taking narcotics in the past and it was stopped around May of last year and hasn't very hard time coping with the pain. She said she used to takes Xanax and still takes Xanax from time to time to help her relax. She insists that she did not overdose and did not try to kill herself. 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 Since then daughter refuses to talk with the patient and patient is quite upset and sad about the situation. She started to see her doctor who apparently prescribed her Cymbalta for depression and pain in both feet. Apparently the pain got better but depression did not and her doctor increased her Cymbalta from 60 to 120 mg about a week ago. A few days later she started to have difficulty in her balance, her muscles were hurting, was falling down, feeling confused etc. Apparently she had fallen down scraping her elbows. She also has been having difficulty in falling and staying asleep. She denies any history of manic episodes. Her lab report is quite suggestive of neuroleptic malignant syndrome. Her clinical presentation is suggestive of serotonin syndrome. Both these conditions have certain similarities. Neuroleptic malignant syndrome is usually caused by psychotropic medications and serotonin syndrome is caused by abrupt increase in serotonin blocking medications. Patient does have muscle rigidity, her WBC was high and her temperature was also high for a short time. Patient is polite and cooperative. She is concerned about her physical condition and her breaking up with her daughter. Her speech is spontaneous and goal-directed. Mood is dysphoric and affect is labile. She becomes tearful quite easily. She denies hallucinations and delusional thinking. She denies suicidal and homicidal ideas. She is well oriented with adequate memory concentration etc. Assessment: Most likely serotonin syndrome caused by increase in Cymbalta. I don't have any reason to believe she had tried to kill herself. Suggestion: Discontinue Cymbalta. Dantrolene is recommended for the management of neuroleptic malignant syndrome. Since this patient has elevated CPK muscle rigidity etc. you may want to try dantrolene by mouth 25 or 50 mg or even Ativan or Valium by mouth. Try Seroquel 50 mg at bedtime for depression and insomnia adjusted dose as necessary.
--- NOTE | 2017-12-29 17:43 | P.CNNES ---
History of Present Illness Consult date: 12/29/17 Reason for Consult: Patient being evaluated for possible seizure disorder. History of Present Illness: This patient is a 57-year-old right-handed white female who apparently was brought into the emergency room yesterday after friends noted that she was having multiple falls at home and seemed to be very weak and lethargic. Patient was brought into the emergency room where she was evaluated in the ER by Dr. Mccray. She apparently had altered mental status and just was very tearful and emotional during examination in the ER. There was also some question whether she had polysubstance abuse and possible suicidal ideation. Psychiatry has been consulted for further evaluation regarding this possibility. The patient apparently had been feeling very depressed. She states that her primary care physician had doubled her dose of Cymbalta from 60 mg 220 mg daily for the past 1 week. She was also advised to follow-up with outpatient psychiatry. The patient apparently had some shaking episodes suggesting possibility of seizures. This was not documented by any bystander or family member. She has no previous history of seizures. She did not bite her tongue or have any bowel or bladder incontinence during this last admission. She denies any previous history of closed head injury or head trauma in the past. Once again when questioned about seizures she clearly denies ever having a seizure in the past. Clearly she is not had any generalized tonic-clonic seizure recently. She is being treated for fibromyalgia and chronic pain syndrome as well. We will obtain a routine EEG for further assessment of possible underlying seizure disorder. As noted she was evaluated with computed tomography scan of the brain which revealed no acute intracranial abnormality. CT of the cervical spine revealed moderate spondylitic changes at C5-C6 and C6-C7 level with moderate spinal canal stenosis noted. The patient is able to answer simple questions appropriately but has poor eye contact. She states she has been on multiple medications over the years for treatment of underlying anxiety disorder and has been taking Xanax on a regular basis. Also some concern for possible withdrawal from the benzodiazepines for her as well. Psychiatry was consulted for further evaluation for this patient today. She is being seen for possibility of serotonin syndrome due to excessive use of Cymbalta. The Cymbalta has subsequently been discontinued. Psychiatry is recommending use of Seroquel 50 mg at bedtime for treatment of depression and insomnia. She does not appear to have clinical findings for suicidal ideation at this time. Still not clear whether the patient has symptoms of neuroleptic malignant syndrome. We will await repeat laboratory testing to be done for the patient. Her initial CPK was elevated at 12,562. Her repeat level today is come down by 50% to 5619. Would continue with serial labs to monitor CPK. She does not seem to show significant rigidity on examination at this time. May consider use of low-dose dantrolene 25 mg if she develops any worsening muscle stiffness over the next 24 hours. She does seem to follow simple commands at this time but remains somewhat withdrawn and we will await further recommendations from psychiatry. Neurology is now been consulted for further evaluation and recommendations. Review of Systems Constitutional: Denies chills, Denies fever Eyes: denies blurred vision, denies pain Ears, nose, mouth and throat: Denies headache, Denies sore throat Cardiovascular: Denies chest pain, Denies shortness of breath Respiratory: Denies cough Gastrointestinal: Denies abdominal pain, Denies diarrhea, Denies nausea, Denies vomiting Genitourinary: Denies dysuria, Denies hematuria Musculoskeletal: Denies myalgias Integumentary: Denies pruritus, Denies rash Neurological: Reports change in mentation, Reports confusion, Reports convulsions, Reports paresthesias, Reports syncope, Denies numbness, Denies weakness Psychiatric: Denies anxiety, Denies depression Endocrine: Denies fatigue, Denies weight change Past Medical History Past Medical History: No Reported History Additional Past Medical History / Comment(s): Degenerative Disc Disease, Fibromyalgia, Chronic Back Pain History of Any Multi-Drug Resistant Organisms: None Reported Past Surgical History: Section, Tonsillectomy Additional Past Surgical History / Comment(s): bariatric surgery Past Anesthesia/Blood Transfusion Reactions: Postoperative Nausea & Vomiting ( PONV) Past Psychological History: Anxiety, Depression Smoking Status: Former smoker Past Alcohol Use History: Daily Additional Past Alcohol Use History / Comment(s): patient states she was taken off of her pain pills and now has one drink a night to try to help her go to sleep Past Drug Use History: None Reported - Past Family History Mother Family Medical History: Cancer Additional Family Medical History / Comment(s): breast cancer, back problems Father Family Medical History: Congestive Heart Failure (CHF) Medications and Allergies Home Medications Medication Instructions Recorded Confirmed Type ALPRAZolam [Xanax] 1 mg PO TID PRN 12/28/17 12/28/17 History Albuterol Sulfate [Proair Hfa] 2 puff INHALATION Q4H PRN 12/28/17 12/28/17 History DULoxetine HCL [Cymbalta] 60 mg PO BID 12/28/17 12/28/17 History Allergies Allergy/AdvReac Type Severity Reaction Status Date / Time Penicillins Allergy Rash/Hives Verified 12/28/17 20:07 Physical Examination - Vital Signs Vital Signs: Vital Signs Temp Pulse Pulse Resp BP BP Pulse Ox 12/29/17 12:00 97.8 F 97 18 125/70 97 12/29/17 08:00 97.7 F 100 16 139/71 99 12/29/17 04:00 104 H 17 143/72 95 12/29/17 00:00 98.0 F 102 H 18 139/70 98 12/28/17 20:00 98.2 F 108 H 17 143/64 99 12/28/17 19:00 98.6 F 107 H 14 154/75 99 12/28/17 18:40 98.9 F 12/28/17 17:59 102 H 16 151/67 96 Intake and Output 12/29/17 12/29/17 12/29/17 06:59 14:59 22:59 Intake Total 1200 880 Output Total 600 1300 Balance 600 -420 Intake: IV 1200 Sodium Chloride 0.9% 1, 1200 000 ml @ 100 mls/hr IV . Q10H [facility] Rx#:[id number] Oral 880 Output: Urine 600 1300 Other: Voiding Method Bedpan Bedpan # Voids 1 1 Weight 62 kg - Constitutional General appearance: average body habitus, cooperative - EENT EENT: PERRL, mucous membranes moist - Respiratory Respiratory: lungs clear, normal breath sounds - Cardiovascular Cardiovascular: regular rate, normal S1, normal S2 Extremities: no peripheral edema bilaterally - Gastrointestinal Gastrointestinal: normoactive bowel sounds - Integumentary Integumentary: normal - Neurologic Cranial nerve examination: PERRL, EOMI, VFF, V1/V2/V3 grossly intact, face symmetric, tongue midline, intact gag reflex, intact corneal reflex, normal palatal elevation Speech examination: intact Sensorimotor examination: intact Motor examination - right side: 4/5: biceps, triceps, wrist flexion, wrist extension, mason tender restoration labor, hip flexors, knee extensors, dorsiflexion, toe extension (EHL) , plantarflexion Motor examination - left side: 4/5: biceps, triceps, wrist flexion, wrist extension, mason tender restoration labor, hip flexors, knee extensors, dorsiflexion, toe extension (EHL) , plantarflexion Detailed sensory examination: intact Reflex and gait examination: intact Reflexes: 1+: ankle, bicep, knee, tricep - Musculoskeletal Musculoskeletal: no pain - Psychiatric Psychiatric: mood/affect appropriate, cooperative Results - Laboratory Findings CBC and BMP: 12/29/17 05:16 12/29/17 05:16 Abnormal Lab Findings: Abnormal Labs 12/28/17 12/28/17 12/28/17 15:32 15:32 15:32 WBC 15.1 H RBC Neutrophils # 13.2 H Chloride BUN 18 H Glucose 103 H POC Glucose (mg/dL) Calcium AST 250 H ALT 73 H Total Creatine Kinase 99714 H CK-MB (CK-2) 54.9 H* Total Protein Albumin Urine Appearance Urine Protein Urine Ketones Urine Blood Ur Leukocyte Esterase Urine WBC Ur Squamous Epith Cells Amorphous Sediment Urine Bacteria Hyaline Casts Urine Mucus Urine Opiates Screen U Benzodiazepines Scrn 12/28/17 12/28/17 12/29/17 15:32 16:02 00:57 WBC RBC Neutrophils # Chloride BUN Glucose POC Glucose (mg/dL) 108 H Calcium AST ALT Total Creatine Kinase 6717 H CK-MB (CK-2) 23.3 H* Total Protein Albumin Urine Appearance Turbid H Urine Protein 1+ H Urine Ketones 1+ H Urine Blood Moderate H Ur Leukocyte Esterase Large H Urine WBC 35 H Ur Squamous Epith Cells 7 H Amorphous Sediment Few H Urine Bacteria Moderate H Hyaline Casts 67 H Urine Mucus Few H Urine Opiates Screen Detected H U Benzodiazepines Scrn Detected H 12/29/17 12/29/17 12/29/17 05:16 05:16 05:16 WBC RBC 3.50 L Neutrophils # Chloride 110 H BUN Glucose POC Glucose (mg/dL) Calcium 8.2 L AST 141 H ALT 56 H Total Creatine Kinase 5619 H CK-MB (CK-2) 17.5 H* Total Protein 5.3 L Albumin 2.8 L Urine Appearance Urine Protein Urine Ketones Urine Blood Ur Leukocyte Esterase Urine WBC Ur Squamous Epith Cells Amorphous Sediment Urine Bacteria Hyaline Casts Urine Mucus Urine Opiates Screen U Benzodiazepines Scrn Assessment and Plan (1) Acute encephalopathy Current Visit: Yes Status: Acute Code(s): G93.40 - ENCEPHALOPATHY, UNSPECIFIED SNOMED Code(s): 54531416 (2) Multiple falls Current Visit: Yes Status: Acute Code(s): R29.6 - REPEATED FALLS SNOMED Code(s): 920101096 (3) New onset seizure Current Visit: Yes Status: Acute Code(s): R56.9 - UNSPECIFIED CONVULSIONS SNOMED Code(s): 35017508 (4) Polysubstance abuse Current Visit: Yes Status: Acute Code(s): F19.10 - OTHER PSYCHOACTIVE SUBSTANCE ABUSE, UNCOMPLICATED SNOMED Code(s): 574028941 Plan: This patient is a 57-year-old female who was admitted to hospital with symptoms of multiple falls and altered mental status. Patient apparently had a history of seizure disorder in the past but recently had been off of all anticonvulsant medications. She was having multiple falls at home with increased mental status changes. She was brought into the emergency room yesterday for further evaluation. She underwent a computed tomography scan of the brain and CT of the cervical spine results which are noted above. She is not a very good historian but states she has been on multiple medications for treatment of chronic pain in has a history of polysubstance abuse. There was concern for possible suicidal ideation and psychiatry was consulted. Psychiatry recommendations have been noted. She is also being evaluated for possibility of serotonin syndrome and neuroleptic malignant syndrome. At this time she has showing improvement in her overall condition. She was started on Keppra for anticonvulsant therapy. We will obtain routine EEG tomorrow for further evaluation. It is still unclear whether her condition was more related to polysubstance abuse or recurrence of seizure activity given her previous history of seizures in the past. Once again she is a very poor historian. We will continue to work closely with psychiatry in regards to her severe depression and polysubstance abuse. Would agree to discontinue use of Cymbalta raising a concern for serotonin syndrome. We will continue close neurological follow-up for the patient. She is advisable [place] law states she should not be driving for a period of 6 months following any seizure activity. Her overall prognosis at this time remains very guarded. We will follow along with psychiatry in terms of further recommendations for her during this admission. Time with Patient: Greater than 30
--- NOTE | 2017-12-29 18:18 | MR ---
EXAMINATION TYPE: MR angio head wo con DATE OF EXAM: 12/29/2017 COMPARISON: NONE HISTORY: seizure CONTRAST: None TECHNIQUE: Multiplanar multiecho imaging on a 3.0 Maria C magnet is performed through the [place] [facility] [place]. 3-D [id number] imaging is performed. Source images are reviewed on the computer in the axi al plane. Reconstructed images rotating on the computer are reviewed. FINDINGS: The internal carotid arteries bifurcate normally into A1 and M1 segments. The A2 segments are normal. Middle cerebral artery branches are normal. Anterior communicating artery is patent. The right posterior communicating artery is patent. The left posterior communicating artery is patent. Vertebrobasilar arteries within the griru-fo-zpin are normal. Posterior cerebral vasculature is norm al. No suspicious aneurysm or aneurysmal dilatation is evident. No obstructions are identified. No significant flow-limiting stenosis is evident. IMPRESSIONS: 1. NORMAL MRA [place].
[2017-12-29] MEDS ORDERED: QUEtiapine 50 MG TAB PO SCH (21:00)
--- NOTE | 2017-12-30 08:23 | CDI ---
Last Revision, August 2017 Documentation Clarification Form Date: December 30, 2017 From: Yvonne Cook Admit Date: 12/28/2017 5:45:00 PM Patient Name: Caroline Gonzalez Visit Number: [id number] ATTENTION: The Clinical Documentation Specialists (CDI) and [facility] Coding Staff appreciate your assistance in clarifying documentation. Please respond to the clarification below the line at the bottom and electronically sign. The CDI & [facility] Coding staff will review the response and follow-up if needed. Please note: Queries are made part of the Legal Health Record. If you have any questions, please contact the author of this message via ITS. Dr.Nawras Rodriguez, Encephalopathy is documented in the Consult from Neurology 12/29 "Acute encephalopathy" History/Risk factors: Anxiety, fibromyalgia, chronic back pain came in this visit for altered mental status and multiple falls, admitted with rhabdomyolysis. Clinical Indicators: Labs: on admission: WBC 15.1, bun 13.2, AST 250, ALT 73, total cr. kinase 50698, ckmb 54.9 Vitals on admission: T 99, P 107, R 16, 167/85, 95% RA EEG: ordered CT/MRI Brain: negative Urine showed opiates, benzodiazepines and UTI Treatment: Patient is on Seroquel, Cymbalta, Xanax, Ativan Monitor Lab Consults: Neurology and Psychiatry In your professional opinion, can you please clarify the specific type of encephalopathy, if known? Anoxic Encephalopathy Metabolic Encephalopathy Toxic Encephalopathy Other, please specify Unable to determine Continue to document in your progress notes, under the line below and/ or in the discharge summary in order to capture severity of illness and risk of mortality. Include clinical findings that support your diagnosis. Toxic encephalopathy MTDD
[2017-12-30] MEDS: cefTRIAXone IN SWFI 1,000 MG/10 ML SYRINGE IVP SCH (08:56)
[2017-12-30] MEDS: levETIRAcetam IV 500 MG in SODIUM CHLORIDE 0.9% 100 ML IVPB SCH (08:57)
--- NOTE | 2017-12-30 08:59 | P.CN ---
Psychiatric Consult - . Consult date: 12/30/17 Consult:: 12/30/17 08:55 Patient was seen for a follow-up examination. She said she did not sleep well last night because she did not get her pain pills and that is pretty hard. She said her muscles are not stiff like they where yesterday. She was started on Seroquel 50 mg at bedtime yesterday and her Cymbalta was discontinued. Today she does not have the muscle rigidity she had yesterday. She also appears more relaxed. Patient is on several benzodiazepines on a when necessary basis. Suggestion: Seroquel can be increased to 100 mg at bedtime. Using multiple benzodiazepines is not recommended. You can choose either Xanax or Ativan but not both at the same time. Patient is requesting narcotics. But I do not recommend use of narcotics. I would avoid SSRIs SNRIs and any drug which would increase serotonin level.
[2017-12-30 11:09] VITALS: RESP 18
[2017-12-30] MEDS: ALPRAZolam 0.5 MG TAB PO PRN (13:21)
[2017-12-30] MEDS: THIAMINE 100 MG TAB PO SCH (13:22)
[2017-12-30 15:41] VITALS: BP 142/74; PULSE 92; TEMP 98
--- NOTE | 2017-12-30 15:55 | P.DS ---
Providers Date of admission: 12/28/17 17:45 Expected date of discharge: 12/30/17 Attending physician: Kb Mae MD Consults: 12/28/17 17:48 Consult Physician Routine Consulting Provider: Rosanna Guan Consult Reason/Comments: Polysubstance abuse, possible suicide attempt Do you want consulting provider notified?: Already Contacted 12/28/17 22:14 Consult Physician Routine Consulting Provider: Ivet Decker Consult Reason/Comments: ?seizure Do you want consulting provider notified?: Yes Primary care physician: Diana [facility] Course: 57 y/o female presented to the hospital because of some shaking episodes suggesting possibility of seizures. This was not documented by any bystander or family member. She has no previous history of seizures. She did not bite her tongue or have any bowel or bladder incontinence during this last admission. She denied any previous history of closed head injury or head trauma in the past. . She stated that she has been falling frequently at home. Patient told her primary care physician recently that she was having increasing depression symptoms and the Cymbalta dose was increased from 60 mg to 120mg daily. When she was interviewed in the emergency department she was slightly lethargic and confused and was not able to give it a good history. Otherwise she denied having any chest pain or shortness breath but she complains of generalized pain and generalized weakness. Evaluation in the emergency department revealed slight tachycardia with heart rate of 110s, blood pressure was slightly elevated, she was not febrile. Laboratory findings revealed slight leukocytosis of 15,000, elevated total CK of around 12,500 consistent with rhabdomyolysis. Her renal function was within normal limits. Her electrolytes were also within normal limits. Patient was seen in consultation with psychiatry and neurology. The consensus was that patient had neuroleptic malignant syndrome secondary to the increase in the Cymbalta dose. Patient was treated with IV fluids and benzodiazepines as needed for muscle spasms and rigidity. She was started on Seroquel by the psychiatrist. Urinalysis was also positive for pyuria and she was treated with ceftriaxone for 3 days. She had an MRA of the brain and that was within normal limits. The case was discussed with neurology, patient will need to have EEG and MRI of the brain done but patient insists on going home because the hospital but is not comfortable for her. I discussed that with the neurologist who agreed that those tests can be done outpatient. I wrote her a prescription for the MRI and EEG and she will follow up as an outpatient to do them. She will also follow with his primary care physician and psychiatrist as an outpatient. She is aware that she needs to discontinue the Cymbalta. Discharge diagnoses Neuroleptic malignant syndrome Rhabdomyolysis Urinary tract infection Depression Chronic back pain Fibromyalgia Time for discharge 35 minutes Patient Condition at Discharge: Serious Plan - Discharge Summary New Discharge Prescriptions: New Acetaminophen Tab [Tylenol] 650 mg PO Q6HR PRN tab PRN Reason: Fever and/ or Mild Pain Mag Hydrox/Al Hydrox/Simeth [Maalox] 15 ml PO Q6HR PRN cup PRN Reason: Indigestion Continue Albuterol Sulfate [Proair Hfa] 2 puff INHALATION Q4H PRN PRN Reason: Shortness Of Breath ALPRAZolam [Xanax] 1 mg PO TID PRN PRN Reason: Anxiety Discontinued DULoxetine HCL [Cymbalta] 60 mg PO BID Discharge Medication List ALPRAZolam [Xanax] 1 mg PO TID PRN 12/28/17 [History] Albuterol Sulfate [Proair Hfa] 2 puff INHALATION Q4H PRN 12/28/17 [History] Acetaminophen Tab [Tylenol] 650 mg PO Q6HR PRN tab 12/30/17 [Rx] Mag Hydrox/Al Hydrox/Simeth [Maalox] 15 ml PO Q6HR PRN cup 12/30/17 [Rx] Follow up Appointment(s)/Referral(s): Diana Page MD [Primary Care Provider] - 1-2 days
== END 2017-12-30 17:07 | disposition home or self-care (01) | DRG 91 ==
LOC: EC 15:10 → 6SEL 17:45
PROVIDERS: ADMIT Internal Medicine; ATTEND Internal Medicine
DX: G21.0 Malignant neuroleptic syndrome (principal); G92 Toxic encephalopathy; M62.82 Rhabdomyolysis; M48.02 Spinal stenosis, cervical region; N39.0 Urinary tract infection, site not specified; F32.9 Major depressive disorder, single episode, unspecified; R29.6 Repeated falls; F41.9 Anxiety disorder, unspecified; M79.7 Fibromyalgia; M54.9 Dorsalgia, unspecified; G40.909 Epilepsy, unspecified, not intractable, without status epilepticus; E66.9 Obesity, unspecified; G89.4 Chronic pain syndrome; T43.215A Adverse effect of selective serotonin and norepinephrine reuptake inhibitors, initial encounter; Z79.899 Other long term (current) drug therapy; Z87.891 Personal history of nicotine dependence; Z82.49 Family history of ischemic heart disease and other diseases of the circulatory system; Z88.0 Allergy status to penicillin; Z68.36 Body mass index [BMI] 36.0-36.9, adult; Z80.3 Family history of malignant neoplasm of breast
CPT/HCPCS: 36415; 70450; 70544; 71046; 72125; 80053; 80177; 80306; 80320; 81001; 82550; 82553; 84484; 85025; 85610; 85730; 87086; 93005; 96361; 96365; 99285

== ENCOUNTER → 2018-09-15 | Outpatient (CLI) | payer BC ==
[~2018-09-15] MED LIST: REGADENOSON 0.4 MG/5 ML SYRINGE IV ONE
--- NOTE | 2018-09-15 12:57 | NM ---
EXAMINATION TYPE: NM stress lexiscan cardiol ite DATE OF EXAM: 09/15/2018 COMPARISON: NONE HISTORY: Abnormal EKG TECHNIQUE: After the intravenous administration of 9.92 mCi Tc 99m Sestamibi - Cardiolite resting SP ECT images acquired 67 minutes post injection. The patient received 0.4mg Lexiscan, 25.4 mCi Tc 99m Sestamibi - Stress images obtained [address] injection FINDINGS: Review of stress and rest SPECT images demonstrates no distinct perfusion abnormality. Gated analysi s shows normal wall motion with an estimated left ventricular ejection fraction of 61 %. IMPRESSION: No scintigraphic evidence for reversible ischemia.
--- NOTE | 2018-09-15 13:41 | EST ---
EXERCISE STRESS DATE OF SERVICE: 09/15/2018 AGE: 58 SEX: Female HT: 65" WT: 225 pounds PROTOCOL: Lexiscan Cardiolite STAGE: DURATION OF EXERCISE: HEART RATE REST: 90 BLOOD PRESSURE REST: 119/79 MAXIMUM HEART RATE ACHIEVED: 94 MAXIMUM BLOOD PRESSURE: 128/76 85% MPHR: 138 100% MPHR: 162 METS: INDICATIONS: Abnormal EKG CLINICAL INFORMATION: Lexiscan Cardiolite study was performed. Peak heart rate of 94 was achieved. Maximum blood pressure of 128/76 mmHg was noted. The resting EKG shows normal sinus rhythm with normal in QRS duration and normal ST-T waves. No ST-segment depression suggestive of ischemia was noted. The results of the nuclear study will follow. MMMINHL / IJN: [id number] /
== END ==
LOC: RADNMMAIN 07:50
PROVIDERS: ATTEND Family Medicine
DX: R94.31 Abnormal electrocardiogram [ECG] [EKG] (principal)
CPT/HCPCS: 93017; 78452; A9500; J2785

== ENCOUNTER 2018-10-31 02:35 | Observation (INO) | payer BC ==
[2018-10-31] MEDS ORDERED: SODIUM CHLORIDE 0.9% 500 ML 500 ML IV STA (02:52)
[2018-10-31] MEDS ORDERED: NITROGLYCERIN SL TABS 0.4 MG TAB SUBLINGUAL STA ×3 (02:52)
[2018-10-31] MEDS ORDERED: ASPIRIN 81 MG PO STA (02:52)
--- NOTE | 2018-10-31 02:56 | ED ---
Chest Pain HPI - General Source: patient, family Mode of arrival: wheelchair Limitations: no limitations <Digna Andrade - Last Filed: 10/31/18 02:52> <Gamal Diana - Last Filed: 10/31/18 06:29> - General Chief Complaint: Chest Pain Stated Complaint: Chest Pressure Time Seen by Provider: 10/31/18 02:43 - History of Present Illness Initial Comments: 58-year-old female patient presents to the emergency department today for evaluation of chest pain, neck pain, and jaw pain. Patient states his symptoms started around 11:00 this evening after taking her usual migraine medications. Patient states that the pain does make it feel difficult to take a deep breath. She describes the pain is intense pressure type pain across her entire upper chest. States it does radiate into her neck and jaw. Denies any radiation through to her back. She denies any abdominal pain. States that the pain does radiate into her bilateral shoulders posteriorly. Denies any nausea or sweats with this. Denies any dizziness or weakness. Patient states she does have a history of hypertension. Denies any history of cigarette use or personal history of CAD. States that her father does have history of A. fib and CHF but denies any CAD. Patient denies any recent rash, fever, chills, cough, congestion , diarrhea, constipation, back pain, numbness, tingling, dizziness, weakness, hematuria, dysuria, urinary urgency, urinary frequency, headache, visual changes , or any other complaints. (Digna Andrade) - Related Data Home Medications Medication Instructions Recorded Confirmed ALPRAZolam [Xanax] 1 mg PO TID PRN 12/28/17 12/28/17 Albuterol Sulfate [Proair Hfa] 2 puff INHALATION Q4H PRN 12/28/17 12/28/17 Previous Rx's Medication Instructions Recorded Acetaminophen Tab [Tylenol] 650 mg PO Q6HR PRN tab 12/30/17 Mag Hydrox/Al Hydrox/Simeth 15 ml PO Q6HR PRN cup 12/30/17 [Maalox] Allergies Allergy/AdvReac Type Severity Reaction Status Date / Time Penicillins Allergy Rash/Hives Verified 10/31/18 02:41 Review of Systems ROS Other: All systems not noted in ROS Statement are negative. <Digna Andrade - Last Filed: 10/31/18 02:52> ROS Other: All systems not noted in ROS Statement are negative. <JordanGamal licea - Last Filed: 10/31/18 06:29> ROS Statement: Those systems with pertinent positive or pertinent negative responses have been documented in the HPI. EKG Findings - EKG Comments: EKG Findings:: EKG obtained at [facility] to 48 shows sinus tachycardia with a ventricular rate of 122, SC interval 140, QRS duration 76, QT 312, QTC 444. No evidence of ST elevation or depression. <RaymondDigna Anthony - Last Filed: 10/31/18 02:52> Past Medical History Past Medical History: No Reported History Additional Past Medical History / Comment(s): Degenerative Disc Disease, Fibromyalgia, Chronic Back Pain History of Any Multi-Drug Resistant Organisms: None Reported Past Surgical History: Section, Tonsillectomy Additional Past Surgical History / Comment(s): bariatric surgery Past Anesthesia/Blood Transfusion Reactions: Postoperative Nausea & Vomiting ( PONV) Past Psychological History: Anxiety, Depression Smoking Status: Former smoker Past Alcohol Use History: Daily Past Drug Use History: None Reported - Past Family History Mother Family Medical History: Cancer Additional Family Medical History / Comment(s): breast cancer, back problems Father Family Medical History: Congestive Heart Failure (CHF) <Digna Andrade - Last Filed: 10/31/18 02:52> General Exam Limitations: no limitations General appearance: alert, in no apparent distress, other (Physical well- developed, well-nourished adult female patient in mild distress related to pain. Vital signs upon presentation are temperature 98.6F, pulse 1:30, respirations 20, blood pressure 164/85, pulse ox 96% on room air.) Eye exam: Present: normal appearance, PERRL, EOMI. Absent: scleral icterus, conjunctival injection, periorbital swelling ENT exam: Present: normal exam, normal oropharynx, mucous membranes moist Respiratory exam: Present: normal lung sounds bilaterally. Absent: respiratory distress, wheezes, rales, rhonchi, stridor Cardiovascular Exam: Present: normal rhythm, tachycardia, normal heart sounds. Absent: systolic murmur, diastolic murmur, rubs, gallop, clicks GI/Abdominal exam: Present: soft, normal bowel sounds. Absent: distended, tenderness, guarding, rebound, rigid Neurological exam: Present: alert, oriented X3, CN II-XII intact Psychiatric exam: Present: normal affect, normal mood Skin exam: Present: warm, dry, intact, normal color. Absent: rash <Digna Andrade - Last Filed: 10/31/18 02:52> Vital Signs 10/31/18 10/31/18 10/31/18 02:37 03:00 03:02 Temperature 98.6 F Pulse Rate 130 H 112 H 111 H Respiratory 20 22 20 Rate Blood Pressure 164/85 179/104 177/95 O2 Sat by Pulse 96 94 L Oximetry 10/31/18 10/31/18 10/31/18 03:06 03:11 03:30 Temperature Pulse Rate 116 H 100 100 Respiratory 28 H 16 21 Rate Blood Pressure 103/73 99/62 126/78 O2 Sat by Pulse 94 L 93 L Oximetry 10/31/18 10/31/18 10/31/18 03:51 04:00 04:30 Temperature Pulse Rate 100 99 Respiratory 28 H 24 Rate Blood Pressure 136/89 118/64 120/72 O2 Sat by Pulse 95 96 Oximetry 10/31/18 10/31/18 10/31/18 05:00 05:30 06:00 Temperature Pulse Rate 101 H 100 101 H Respiratory 25 H 28 H 23 Rate Blood Pressure 121/70 133/77 128/68 O2 Sat by Pulse 95 97 95 Oximetry Chest Pain MDM <Digna Andrade - Last Filed: 10/31/18 02:52> <Gamal Diana - Last Filed: 10/31/18 06:29> - MDM I saw this patient in conjunction with the nurse practitioner. I performed independent history and physical exam. Agree with case management. (Gamal Diana) Disposition <Digna Andrade - Last Filed: 10/31/18 02:52> Is patient prescribed a controlled substance at d/c from ED?: No <Gamal Diana - Last Filed: 10/31/18 06:29> Clinical Impression: Chest pain Disposition: ADMITTED IP TO THIS [facility] Condition: Fair Referrals: Diana Page MD [Primary Care Provider] - 1-2 days
[2018-10-31 03:05] LABS: Basophils # (A) 0.1 k/uL (0-0.2); Basophils % (A) 1 %; Eosinophils # (A) 0.2 k/uL (0-0.7); Eosinophils % (A) 2 %; HCT 45.5 % (34.0-46.0); HGB 15.1 gm/dL (11.4-16.0); Lymphocytes # (A) 3.6 k/uL (1.0-4.8); Lymphocytes % (A) 26 %; MCH 32.7 pg (25.0-35.0); MCHC 33.2 g/dL (31.0-37.0); MCV 98.5 fL (80.0-100.0); Mean Platelet Volume 6.5; Monocytes # (A) 0.4 k/uL (0-1.0); Monocytes % (A) 3 %; Neutrophils # (A) 9.6 k/uL (1.3-7.7); Neutrophils % (A) 68 %; Platelet Count 396 k/uL (150-450); RBC 4.62 m/uL (3.80-5.40); WBC 14.2 k/uL (3.8-10.6)
[2018-10-31 03:15] LABS: Creatine Kinase 44 U/L (30-135)
[2018-10-31 03:16] LABS: Albumin 4.4 g/dL (3.5-5.0); Calcium 9.4 mg/dL (8.4-10.2); Magnesium 1.9 mg/dL (1.6-2.3); Potassium 4.5 mmol/L (3.5-5.1); Total Bilirubin 0.6 mg/dL (0.2-1.3); Total Protein 8.1 g/dL (6.3-8.2)
[2018-10-31 03:17] LABS: INR 0.9 (<1.2); Partial Thromboplastin Time 27.4 sec (22.0-30.0); Prothrombin Time 9.7 sec (9.0-12.0)
[2018-10-31 03:27] LABS: Creatine Kinase MB 0.3 ng/mL (0.0-2.4); Troponin I <0.012 ng/mL (0.000-0.034)
--- NOTE | 2018-10-31 03:40 | XR ---
EXAMINATION TYPE: XR chest 2V DATE OF EXAM: 10/31/2018 COMPARISON: 12/28/2017 HISTORY: Chest pressure TECHNIQUE: Frontal and lateral views of the chest are obtained. FINDINGS: Heart and mediastinum are normal. There is some increased density behind the heart and the left lower lobe. This is probably vascular.. Diaphragm is normal. Bony thorax appears normal. There are chest leads. IMPRESSION: Normal chest. No significant change.
[2018-10-31] MEDS: MORPHINE SULFATE 4 MG/ML SYRINGE IVP STA ×2 (03:48→05:52)
--- NOTE | 2018-10-31 04:24 | CT ---
EXAMINATION TYPE: CT chest angio for PE DATE OF EXAM: 10/31/2018 COMPARISON: None HISTORY: R/O PE chest pain CT DLP: 329.80 mGycm Automated exposure control for dose reduction was used. CONTRAST: CT Chest for pulmonary embolism performed with with IV Contrast, patient injected with 60 mL of Isovu e 370. FINDINGS: There are 3-D post processed images. Mediastinum is normal. There is no mediastinal adenopathy. There is no evidence of aortic aneurysm or dissection. There are no hilar masses. Heart size is normal. There is no pericardial effusion. Ascen ding aorta measures 3 cm. There is small left pleural effusion and left basilar infiltrate and atelectasis. There is normal contrast opacification of the pulmonary arteries. There is small hiatal hernia. There are clips from bariatric surgery. There is mild spurring in the thoracic spine. I see no bony destru ctive process. IMPRESSION: No evidence of pulmonary embolism. There is left pleural effusion and left lower lobe pneumonia and atelectasis.
[2018-10-31] MEDS ORDERED: MORPHINE SULFATE 4 MG/ML SYRINGE IVP STA (05:48)
[2018-10-31] MEDS ORDERED: MORPHINE SULFATE 2 MG/ML SYRINGE IVP STA (05:48)
[2018-10-31] MEDS ORDERED: NITROGLYCERIN SL TABS 0.4 MG TAB SUBLINGUAL PRN (06:26)
[2018-10-31] MEDS ORDERED: ALBUTEROL NEBULIZED 2.5 MG/3 ML INHALATION PRN (06:28)
[2018-10-31] MEDS ORDERED: ALPRAZolam 1 MG TAB PO PRN (06:28)
[2018-10-31] MEDS ORDERED: ACETAMINOPHEN TAB 325 MG TAB PO PRN ×2 (06:28→13:26)
[2018-10-31] MEDS ORDERED: MAG HYDROX/AL HYDROX/SIMETH 30 ML CUP PO PRN (06:28)
[2018-10-31 09:15] LABS: Creatine Kinase 33 U/L (30-135)
[2018-10-31 09:29] LABS: Creatine Kinase MB <0.2 ng/mL (0.0-2.4); Troponin I <0.012 ng/mL (0.000-0.034)
--- NOTE | 2018-10-31 13:26 | P.HPIM ---
History of Present Illness H&P Date: 10/31/18 The patient is a 58-year-old female with a PMH of hypertension, psoriatic arthritis, fibromyalgia, and cervical spinal stenosis who presented to the ED for chest, neck, and jaw pain. The patient notes that she was in her usual state of health when she went to bed at 10 PM and noticed sudden onset of substernal, pleuritic, sharp and pressure-like 10 out of 10 chest pain along with left jaw and neck pain. Patient notes that she had some difficulty breathing due to the pain and had been taking shallow breaths. She denied associated nausea, vomiting, diaphoresis, dizziness, or palpitations. The patient also denied recent coughing, fever, or chills, recent travel, lower extreme swelling, calf pain, or sick contacts. She notes that her pain improved significantly after presenting to the, and at the time of the interview was a 1 out of 10. The patient denied any previous family history of coronary artery disease or MIs. The patient smoked a few cigarettes a day but quit 20 years ago. In the ED, the patient underwent a comprehensive workup, with troponin negative 2, d-dimer elevated to 3.76, with subsequent chest CTA negative for PE, but showing a left lower lobe pneumonia and a left-sided pleural effusion. WBC count was 14.2, hemoglobin 15.5, platelets 396, creatinine 0.5. Cardiology was consulted and the patient was admitted to the medicine service for further management. Review of Systems Pertinent positives and negatives as discussed in HPI, a complete review of systems was performed and all other systems are negative. Past Medical History Past Medical History: Fibromyalgia, Hypertension Additional Past Medical History / Comment(s): Degenerative Disc Disease, Fibromyalgia, Chronic Back Pain, depression, psoriatic arthritis History of Any Multi-Drug Resistant Organisms: None Reported Past Surgical History: Section, Tonsillectomy Additional Past Surgical History / Comment(s): bariatric surgery- sleeve. Past Anesthesia/Blood Transfusion Reactions: Postoperative Nausea & Vomiting ( PONV) Past Psychological History: Anxiety, Depression Smoking Status: Former smoker Past Alcohol Use History: Daily Additional Past Alcohol Use History / Comment(s): pt states she does occ drink wine, <7 drinks per week. Past Drug Use History: None Reported - Past Family History Mother Family Medical History: Cancer Additional Family Medical History / Comment(s): breast cancer, back problems Father Family Medical History: Congestive Heart Failure (CHF) Medications and Allergies Home Medications Medication Instructions Recorded Confirmed Type Acetaminophen [Tylenol] 325 mg PO Q46H PRN 10/31/18 10/31/18 History Ergocalciferol (Vitamin D2) 50,000 unit PO MO 10/31/18 10/31/18 History [Drisdol] Lisinopril [Zestril] 10 mg PO DAILY 10/31/18 10/31/18 History Mirtazapine [Remeron] 45 mg PO DAILY 10/31/18 10/31/18 History QUEtiapine [SEROquel] 50 mg PO HS 10/31/18 10/31/18 History Allergies Allergy/AdvReac Type Severity Reaction Status Date / Time Penicillins Allergy Rash/Hives Verified 10/31/18 09:41 Physical Exam Vitals: Vital Signs Temp Pulse Pulse Resp BP BP Pulse Ox 10/31/18 12:00 99.3 F 112 H 16 123/77 96 10/31/18 08:00 98.5 F 103 H 18 144/85 99 10/31/18 06:46 105 H 20 117/71 95 10/31/18 06:00 101 H 23 128/68 95 10/31/18 05:30 100 28 H 133/77 97 10/31/18 05:00 101 H 25 H 121/70 95 10/31/18 04:30 99 24 120/72 96 10/31/18 04:00 118/64 10/31/18 03:51 100 28 H 136/89 95 10/31/18 03:30 100 21 126/78 10/31/18 03:11 100 16 99/62 93 L 10/31/18 03:06 116 H 28 H 103/73 94 L 10/31/18 03:02 111 H 20 177/95 94 L 10/31/18 03:00 112 H 22 179/104 10/31/18 02:37 98.6 F 130 H 20 164/85 96 Intake and Output 10/30/18 10/31/18 10/31/18 22:59 06:59 14:59 Other: Voiding Method Toilet Weight 99.79 kg General: [non toxic], [no distress], [appears at stated age], obese Derm: [no unusual rashes/lesions] [no unusual ecchymoses], [warm], [dry] Head: [atraumatic], [normocephalic], [symmetric] Eyes: [EOMI], [no lid lag], [anicteric sclera], [pupils equal round reactive to light] ENT: [Nose and ears atraumatic], [no thrush], [no pharyngeal erythema] Neck: [No thyromegaly], [no cervical lymphadenopathy], [trachea midline], [ supple] Mouth: [no lip lesion], [mucus membranes moist] Cardiovascular: [S1S2 reg], sternal and parasternal tenderness to palpation, [ no murmur], [positive posterior tibial pulse bilateral], [no edema], [capillary refill less than 2 seconds] Lungs: [CTA bilateral], [no rhonchi, no rales] , [no accessory muscle use] Abdominal: [soft], [ nontender to palpation], [no guarding], [no appreciable organomegaly], [normal bowel sounds] Ext: [no gross muscle atrophy], [muscle strength 5 out of 5 in all 4 extremities grossly], [no contractures], Neuro: [ CN II-XI grossly intact], [light touch intact all 4 extremities], [ finger to nose within normal limits], Psych: [Alert], [oriented], [appropriate affect] Results CBC & Chem 7: 10/31/18 02:50 10/31/18 02:50 Labs: Abnormal Lab Results - Last 24 Hours (Table) 10/31/18 10/31/18 10/31/18 Range/Units 02:50 02:50 02:50 WBC 14.2 H (3.8-10.6) k/uL Neutrophils # 9.6 H (1.3-7.7) k/uL D-Dimer 3.76 H (<0.60) mg/L FEU Chloride 109 H (98-107) mmol/L Carbon Dioxide 20 L (22-30) mmol/L Glucose 128 H (74-99) mg/dL AST 41 H (14-36) U/L Thrombosis Risk Factor Assmnt - Choose All That Apply Any of the Below Risk Factors Present?: Yes Each Factor Represents 1 point: Age 41-60 years, Obesity (BMI >25) Other Risk Factors: No Other congenital or acquired thrombophilia - If yes, enter type in comment: No Thrombosis Risk Factor Assessment Total Risk Factor Score: 2 Thrombosis Risk Factor Assessment Level: Low Risk Assessment and Plan Plan: Sepsis secondary to community acquired pneumonia -Will start patient on Levaquin -IV fluids Chest pain, atypical -Patient notes that she had a recent bout of severe psoriatic arthritis and received a Depo Medrol and a prednisone taper which finished 5 days ago -CTA negative for PE -Cardiology recommendations pending -Continue with aspirin Hypertension -Continue with home meds lisinopril 10 Fibromyalgia -Continue with home meds: Mirtazapine 45 g by mouth daily DVT//GI prophylaxis -Lovenox -No indication for GI prophylaxis The patient is admitted with an anticipated greater than than 2 midnight stay for evaluation of community acquired pneumonia. CODE STATUS: Full Code Discussed with: Patient Anticipated discharge date: 11/02/[address]: Home A total of 60 minutes was spent on the care of this complex patient more than 50 % of the time was spent in counseling and care coordination.
[2018-10-31] MEDS: LEVOFLOXACIN 750 MG TAB PO SCH (14:02)
--- NOTE | 2018-10-31 14:07 | CONS ---
CONSULTATION Mrs. Gonzalez is a 58-year-old female who presented with symptoms of chest discomfort. Patient has a history of fibromyalgia, history of psoriatic arthritis with recent inflammatory flare up that was treated with steroids who yesterday started complaining of chest discomfort, radiating to the jaw and neck, quite severe, lasting for over 4 hours. The discomfort was respiratory phasic and worse with palpation. Because of the persistent symptoms, came into the emergency room and subsequently evaluated. Patient has no prior history of documented coronary artery disease, has underwent a myocardial perfusion imaging in the summer of 2018 that revealed no evidence of inducible ischemia with preserved systolic function. Her activity level is limited because of her arthritic pain. She has a questionable history of asthma. Occasional peripheral edema. No syncope. No history of malignant arrhythmia. No clear PND nor orthopnea. Her coronary risk factors are positive for hypertension in the past. She has been on lisinopril according to her. She has stopped smoking over 20 years ago. She is nondiabetic and mild hyperlipidemia. Her medication include Seroquel, ProAir. She says she is on lisinopril. REVIEW OF SYSTEMS: RESPIRATORY SYSTEM: She has history of prior asthma but stable. Occasional cough. GI SYSTEM: No recent GI bleeding. No peptic ulcer disease. SYSTEM: No dysuria or hematuria. NERVOUS SYSTEM: No history of stroke, questionable seizure. PHYSICAL EXAMINATION: She is a 58-year-old female, alert, oriented, in no apparent distress. Blood pressure running in the 110s to 140 with a heart rate in the low 100s. HEAD: Normocephalic. EYES: Sclerae nonicteric. NECK: Good upstroke, no jugular venous distention, clear to auscultation. HEART: Regular rate and rhythm, S1, S2. No S3 with systolic murmur, ejection type heard at the base. No diastolic murmur, no rub. ABDOMEN: Soft, nontender, positive bowel sounds, no organomegaly. EXTREMITIES: No edema, intact distal pulses. LAB DATA: Revealed troponin less than 0.012. D-dimer 3.76. BUN and creatinine of 11 and 0.85. Hemoglobin 15.1, white blood cell of 14.2. EKG revealed a sinus mechanism, normal axis, rate of 122, nonspecific ST-T wave changes. CT angiogram of the chest revealed no evidence of pulmonary embolism with a left pleural effusion and reported left lower lobe pneumonia, although the chest x-ray revealed no infiltrate. IMPRESSION: 1. Chest discomfort, atypical for ischemic heart disease, probably noncardiac, appears to be musculoskeletal in etiology. 2. History of hypertension. 3. History of psoriasis and fibromyalgia. 4. History of asthma. RECOMMENDATION: From the cardiac standpoint, I will obtain serial enzymes. If there is no evidence of abnormalities, then patient can be discharged home. I will obtain echocardiogram with Doppler because of her murmur. The patient recently had a myocardial perfusion imaging that revealed no evidence of inducible ischemia. I have discussed those finding with the patient and she is in full understanding and agreement. Thank you for this consult. We will follow with you. MMODL / IJN: [id number] /
[2018-10-31] MEDS ORDERED: SODIUM CHLORIDE 0.9% 1,000 ML IV ONE (15:51)
[2018-10-31 16:09] LABS: Creatine Kinase 30 U/L (30-135)
--- NOTE | 2018-10-31 16:12 | ECHOF ---
Referral Reason: MEASUREMENTS -------- HEIGHT: 167.6 cm WEIGHT: 99.8 kg BP: RVIDd: 2.1 cm (< 3.3) IVSd: 1.0 cm (0.6 - 1.1) LVIDd: 2.7 cm (3.9 - 5.3) LVPWd: 1.3 cm (0.6 - 1.1) IVSs: 1.6 cm LVIDs: 1.7 cm LVPWs: 1.6 cm LAESV Index (A-L): 11.02 ml/m Ao Diam: 2.9 cm (2.0 - 3.7) AV Cusp: 2.1 cm (1.5 - 2.6) LA Diam: 2.6 cm (2.7 - 3.8) MV EXCURSION: 21.866 mm (> 18.000) MV EF SLOPE: 220 mm/s (70 - 150) EPSS: 0.5 cm MV E Jef: 0.81 m/s MV DecT: 149 ms MV A Jef: 0.78 m/s MV E/A Ratio: 1.04 RAP: 5.00 mmHg RVSP: 26.58 mmHg FINDINGS -------- Sinus rhythm. Resting tachycardia (HR>100bpm). This was a technically good study. The left ventricular size is normal. There is borderline concentric left ventricular hypertrophy. Overall left ventricular systolic function is normal with, an EF between 60 - 65 %. The right ventricle is normal in size. Normal LA size by volume 22+/-6 ml/m2. The right atrium is normal in size. The aortic valve is trileaflet, and appears structurally normal. No aortic stenosis or regurgitation. The mitral valve is normal. There is trace mitral regurgitation. Trace tricuspid regurgitation present. There is no evidence of pulmonary hypertension. The right ventricular systolic pressure, as measured by Doppler, is 26.58mmHg. There is no pulmonic regurgitation present. The aortic root size is normal. Normal inferior vena cava with normal inspiratory collapse consistent with estimated right atrial pre ssure of 5 mmHg. There is no pericardial effusion. CONCLUSIONS -------- 1. Sinus rhythm. 2. Resting tachycardia (HR>100bpm). 3. This was a technically good study. 4. The left ventricular size is normal. 5. There is borderline concentric left ventricular hypertrophy. 6. Overall left ventricular systolic function is normal with, an EF between 60 - 65 %. 7. Normal LA size by volume 22+/-6 ml/m2. 8. The aortic valve is trileaflet, and appears structurally normal. No aortic stenosis or regurgitati on. 9. There is trace mitral regurgitation. 10. Trace tricuspid regurgitation present. 11. There is no evidence of pulmonary hypertension. 12. There is no pulmonic regurgitation present. 13. The aortic root size is normal. 14. Normal inferior vena cava with normal inspiratory collapse consistent with estimated right atrial pressure of 5 mmHg. 15. There is no pericardial effusion. VEHICLE SAFETY INSPECTOR: Rivka Diana RDCS
[2018-10-31 16:21] LABS: Creatine Kinase MB <0.2 ng/mL (0.0-2.4); Troponin I <0.012 ng/mL (0.000-0.034)
[2018-10-31] MEDS: HYDROcodone/APAP 5-325MG 1 EACH TAB PO PRN ×2 (17:05→21:40)
[2018-10-31] MEDS: SODIUM CHLORIDE 0.9% 1,000 ML IV SCH ×2 (18:00→21:36)
[2018-10-31] MEDS ORDERED: QUEtiapine 50 MG TAB PO SCH (21:00)
[2018-11-01 03:04] LABS: Cholesterol 228 mg/dL (<200); HDL Cholesterol 64 mg/dL (40-60); LDL Cholesterol,Calculated 141 mg/dL (0-99); Triglycerides 113 mg/dL (<150)
[2018-11-01] MEDS: SODIUM CHLORIDE 0.9% 1,000 ML IV SCH ×3 (04:26→13:24)
[2018-11-01 07:31] VITALS: RESP 18
[2018-11-01] MEDS: LEVOFLOXACIN 750 MG TAB PO SCH (08:28)
[2018-11-01] MEDS ORDERED: ASPIRIN 81 MG PO SCH (09:00)
[2018-11-01] MEDS ORDERED: ASPIRIN 325 MG TAB PO SCH (09:00)
[2018-11-01] MEDS ORDERED: MIRTAZAPINE 45 MG TABLET PO SCH (09:00)
[2018-11-01] MEDS ORDERED: LISINOPRIL 10 MG TAB PO SCH (09:00)
--- NOTE | 2018-11-01 09:32 | PN ---
PROGRESS NOTE Ms. Gonzalez is a 58-year-old female who presented yesterday with chest and jaw, and neck discomfort. She is feeling better today. She has history of fibromyalgia as well as psoriatic arthritis. She ambulated. She has no further dizziness. No palpitations. She has underwent myocardial perfusion imaging recently that revealed no evidence of inducible ischemia. An echocardiogram that was performed yesterday revealed a preserved ventricular size and systolic function with no significant valvular disease. She continues to be at this time on aspirin, lisinopril 10 mg daily. PHYSICAL EXAMINATION: Blood pressure 138/80 with a heart rate in the 60s. LUNGS: Clear. Heart regular rate and rhythm, S1, S2. No S3. No rub. ABDOMEN: Soft and nontender. EXTREMITIES: No edema. LAB DATA: Cholesterol 228, LDL of 141. Troponin less than 0.012. IMPRESSION: 1. Chest discomfort, atypical for ischemic heart disease. 2. Fibromyalgia. 3. Hypertension. 4. Hyperlipidemia. 5. History of psoriatic arthritis. RECOMMENDATION: From the cardiac standpoint, she is stable. I would expect she should be able to be discharged home today and follow as an outpatient with her primary physician. MMODL / IJN: [id number] /
[2018-11-01 12:44] LABS: HGB 12.7 gm/dL (11.4-16.0); MCH 32.5 pg (25.0-35.0); MCHC 32.6 g/dL (31.0-37.0); MCV 99.6 fL (80.0-100.0); Mean Platelet Volume 7.1; Platelet Count 256 k/uL (150-450); RBC 3.92 m/uL (3.80-5.40); WBC 8.3 k/uL (3.8-10.6)
[2018-11-01 12:54] LABS: Anion Gap 5 mmol/L; Blood Urea Nitrogen 10 mg/dL (7-17); Calcium 8.6 mg/dL (8.4-10.2); Carbon Dioxide 23 mmol/L (22-30); Chloride 113 mmol/L (98-107); Glucose 64 mg/dL (74-99); Potassium 4.7 mmol/L (3.5-5.1); Sodium 141 mmol/L (137-145)
[2018-11-01 15:39] VITALS: BP 152/96; PULSE 100; TEMP 98.3
--- NOTE | 2018-11-01 17:50 | P.DS ---
Providers Date of admission: 10/31/18 06:29 Expected date of discharge: 11/01/18 Attending physician: Lawrence Tapia MD Consults: 10/31/18 06:26 Consult Physician Routine Consulting Provider: Kvng Thomas Consult Reason/Comments: chest pain Do you want consulting provider notified?: Yes Primary care physician: [facility] Course: The patient is a 58-year-old female with a PMH of hypertension, psoriatic arthritis, fibromyalgia, and cervical spinal stenosis who presented to the ED for chest, neck, and jaw pain. The patient notes that she was in her usual state of health when she went to bed at 10 PM and noticed sudden onset of substernal, pleuritic, sharp and pressure-like 10 out of 10 chest pain along with left jaw and neck pain. The patient also complained of shortness of breath along with a nonproductive cough. In the ED, the patient had troponins negative 2, d-dimer was elevated and the subsequent chest CTA was negative for PE though showing a left lower lobe pneumonia with a left-sided pleural effusion. WBC count was 14.2. Cardiology was consulted and recommended that since the patient had a myocardial perfusion imaging study recently which showed no evidence of inducible ischemia, and an echocardiogram done during this admission which showed normal left ventricular ejection fraction with no significant valvular disease, that the patient's chest pain was atypical and unlikely cardiac. The patient was started on IV fluids and antibiotics for sepsis secondary to community-acquired pneumonia. The patient's sepsis and symptoms resolved. She was seen and examined at the bedside on 11/01/2018. She noted that she no longer had chest pain, shortness of breath, or palpitations. She denied any additional complaints including fever, chills, nausea, or vomiting. The patient was subsequently discharged home in stable condition with oral antibiotics. Physical Examination General: Non-toxic, in no acute distress, appears stated age, obese HEENT: NC/AT, anicteric sclerae, moist conjunctiva, no lid-lag, PERRLA Cardiovascular: S1/S2 wnl, no murmurs, rubs, or gallops Lungs: Clear to auscultation, normal respiratory effort, no accessory muscle use Abdominal: Soft, non-tender, non-distended, no guarding, rebound, or rigidity Skin: Warm, dry Extremities: No edema or contractures Psychiatric: Alert and oriented to person, place and time, appropriate affect Neuro: CN II-XII grossly intact, Strength 5/5 in all 4 extremities, Speech intact, Sensation to light touch grossly intact throughout Discharge diagnosis: Community-acquired pneumonia, sepsis resolved; chest pain atypical; hypertension; fibromyalgia A total of 45 minutes of time were spent preparing this complex discharge summary. Pertinent Studies: As per HPI Procedures: As per HPI Patient Condition at Discharge: Stable Plan - Discharge Summary Discharge Rx Participant: No New Discharge Prescriptions: New Albuterol Nebulized [Ventolin Nebulized] 2.5 mg INHALATION RT-Q4H PRN #1 nebu PRN Reason: Shortness Of Breath Levofloxacin [Levaquin] 750 mg PO DAILY #5 tab Continue QUEtiapine [SEROquel] 50 mg PO HS Ergocalciferol (Vitamin D2) [Drisdol] 50,000 unit PO MO Mirtazapine [Remeron] 45 mg PO DAILY Lisinopril [Zestril] 10 mg PO DAILY Acetaminophen [Tylenol] 325 mg PO Q46H PRN PRN Reason: Pain Discharge Medication List Acetaminophen [Tylenol] 325 mg PO Q46H PRN 10/31/18 [History] Ergocalciferol (Vitamin D2) [Drisdol] 50,000 unit PO MO 10/31/18 [History] Lisinopril [Zestril] 10 mg PO DAILY 10/31/18 [History] Mirtazapine [Remeron] 45 mg PO DAILY 10/31/18 [History] QUEtiapine [SEROquel] 50 mg PO HS 10/31/18 [History] Albuterol Nebulized [Ventolin Nebulized] 2.5 mg INHALATION RT-Q4H PRN #1 nebu [Rx] Levofloxacin [Levaquin] 750 mg PO DAILY #5 tab 11/01/18 [Rx] Follow up Appointment(s)/Referral(s): Diana Page MD [Primary Care Provider] - 1-2 days Discharge Disposition: HOME SELF-CARE
[2018-11-02] MEDS ORDERED: ERGOCALCIFEROL 50,000 UNIT CAP PO SCH (09:00)
[2018-11-02 11:57] LABS: Hemoglobin A1C 5.6 % (4.0-6.0)
== END 2018-11-01 16:50 | disposition home or self-care (01) ==
LOC: EC 02:35 → SUPCPDRO 02:35 → 1SOBS 06:29
PROVIDERS: ADMIT Internal Medicine; ATTEND Internal Medicine
DX: A41.9 Sepsis, unspecified organism (principal); J18.1 Lobar pneumonia, unspecified organism; R07.89 Other chest pain; I10 Essential (primary) hypertension; M79.7 Fibromyalgia; M54.9 Dorsalgia, unspecified; G89.29 Other chronic pain; F41.9 Anxiety disorder, unspecified; F32.9 Major depressive disorder, single episode, unspecified; L40.50 Arthropathic psoriasis, unspecified; E78.5 Hyperlipidemia, unspecified; J45.909 Unspecified asthma, uncomplicated; M48.02 Spinal stenosis, cervical region; R68.84 Jaw pain; R79.89 Other specified abnormal findings of blood chemistry; Z98.84 Bariatric surgery status; E66.9 Obesity, unspecified; Z68.38 Body mass index [BMI] 38.0-38.9, adult; J90 Pleural effusion, not elsewhere classified; Z79.899 Other long term (current) drug therapy; Z88.0 Allergy status to penicillin; Z87.891 Personal history of nicotine dependence; Z80.3 Family history of malignant neoplasm of breast; Z82.69 Family history of other diseases of the musculoskeletal system and connective tissue; Z82.49 Family history of ischemic heart disease and other diseases of the circulatory system
CPT/HCPCS: 96361 ×2; 96376; 96374; 99285; 36415; 93005; 93306; 85379; 80061; 80053; 80048; 82550; 82553; 83605; 83735; 84484; 85025; 85027; 85610; 85730; 83036; 71046; 71275; G0378 ×2; J2270; Q9967

== ENCOUNTER → 2018-12-29 | Outpatient (CLI) | payer BC | END | disposition home or self-care (01) | LOC: LABWHC1 16:14 | PROVIDERS: ATTEND Internal Medicine Rheumatology | DX: L40.50 Arthropathic psoriasis, unspecified (principal) | CPT/HCPCS: 36415; 85652; 86140 ==

== ENCOUNTER → 2021-02-20 | Outpatient (CLI) | payer BC ==
--- NOTE | 2021-02-22 09:03 | MM ---
Reason for exam: screening (asymptomatic). Last mammogram was performed 1 year and 6 months ago. History: Family history of breast cancer in mother at age 53. Benign MG stereo VAD BX LT, 2016. Physical Findings: A clinical breast exam by your physician is recommended on an annual basis and results should be correlated with mammographic findings. MG 3D Screening Mammo W/Cad Bilateral CC and MLO view(s) were taken. Prior study comparison: September 06, 2019, mammogram, performed at [facility]. There are scattered fibroglandular densities. ASSESSMENT: Benign, BI-RAD 2 RECOMMENDATION: Routine screening mammogram of both breasts in 1 year.
== END | disposition home or self-care (01) ==
LOC: RADMAMWWP 14:03
PROVIDERS: ATTEND Family Medicine
DX: Z12.31 Encounter for screening mammogram for malignant neoplasm of breast (principal); Z80.3 Family history of malignant neoplasm of breast
CPT/HCPCS: 77063; 77067

== ENCOUNTER → 2021-04-17 | Outpatient (CLI) | payer BC ==
--- NOTE | 2021-04-17 14:50 | BD ---
EXAMINATION TYPE: Axial Bone Density DATE OF EXAM: 04/17/2021 COMPARISON: NONE CLINICAL HISTORY: Menopause Height: 66 Weight: 237.6 FRAX RISK QUESTIONS: Alcohol (3 or more units per day): no Family History (Parent hip fracture): no Glucocorticoids (More than 3mos): yes (Ex: prednisone, prednisolone, methylprednisolone, dexamethasone, and hydrocortisone). History of Fracture in Adulthood: no Secondary Osteoporosis: 1. Type 1 Diabetes: no 2. Hyperthyroidism: no 3. Menopause before 45: no 4. Malnutrition: no 5. Chronic liver disease: no Rheumatoid Arthritis: no Current Tobacco Use: no RISK FACTORS HISTORY OF: Surgery to Spine/Hip(right/left)/Wrist (right/left): no Family History of Osteoporosis: yes Active: no Diet low in dairy products/other sources of calcium: no Postmenopausal woman: age 54 Lost more than 2 inches in height since high school: no MEDICATIONS: Prednisone or other steroids: yes How Lonweeks Additional History: EXAM MEASUREMENTS: Bone mineral densitometry was performed using the [employer] System. Bone mineral density as measured about the Lumbar spine is: ----- L1-L4(G/cm2): 1.382 T Score Values are as follows: ----- L2: 1.8 ----- L3: 1.9 ----- L4: 1.9 ----- L1-L4: 1.7 Bone mineral density : baseline Bone mineral density about the R hip (g/cm2): 1.293 Bone mineral density about the L hip (g/cm2): 1.268 T Score values are as follows: -----R Neck: 1.8 -----L Neck: 1.7 -----R Total: 2.8 -----L Total: 2.6 Bone mineral density : baseline IMPRESSION: Normal bone mineral density NOTE: T-SCORE=SD OF THE YOUNG ADULT MEAN.
== END | disposition home or self-care (01) ==
LOC: RADBDWWP 13:09
PROVIDERS: ATTEND Family Medicine
DX: Z78.0 Asymptomatic menopausal state (principal)
CPT/HCPCS: 77080

== ENCOUNTER → 2022-04-05 | Outpatient (CLI) | payer BC ==
--- NOTE | 2022-04-05 15:30 | XR ---
EXAMINATION TYPE: XR Hip RT and AP Pelvis DATE OF EXAM: 04/05/2022 COMPARISON: NONE HISTORY: Right hip pain TECHNIQUE: A single AP view of the pelvis is obtained. Two views of the right hip are obtained. FINDINGS: There is pincer morphology to the right and left hips, consider femoral acetabular impinge ment. There is no fracture or dislocation. Bone mineralization, alignment, joint spaces maintained. P robable vascular calcifications are present within the pelvis. IMPRESSION: Correlate for femoral acetabular impingement
== END | disposition home or self-care (01) ==
LOC: RADXRMAIN 14:07
PROVIDERS: ATTEND Physician Assistant
DX: M24.851 Other specific joint derangements of right hip, not elsewhere classified (principal)
CPT/HCPCS: 73502

== ENCOUNTER → 2022-04-22 | Outpatient (CLI) | payer BC ==
--- NOTE | 2022-04-22 14:14 | CT ---
EXAMINATION TYPE: CT chest wo con DATE OF EXAM: 04/22/2022 COMPARISON: None HISTORY: 61-year-old female U09.9, J45.909, R06.00, Post COVID, asthma, shortness of breath/dyspnea TECHNIQUE: Contiguous axial scanning of the chest without IV contrast. Coronal and sagittal reconstru ctions performed. CT DLP: 676.8 mGycm Automated exposure control for dose reduction was used. FINDINGS: Heart normal size without pericardial effusion. Aorta normal caliber with a bovine configuration to the aortic arch. No thoracic lymphadenopathy by CT size criteria. Some mild subpleural groundglass and reticular change posterior right midlung suggesting some interst itial scarring. Some additional strandy scarring suggested in the lung bases. No karla consolidation or pleural effusion. Postsurgical change at the GE junction with additional postsurgical changes of gastrectomy partially seen. Small anterior splenule. Diffuse low attenuation of the hepatic parenchyma compatible with fatt y infiltration of the liver. Bones: Mild degenerative disc disease throughout the thoracic spine. IMPRESSION: 1. SOME SCATTERED SUBPLEURAL INTERSTITIAL SCARRING ESPECIALLY POSTERIOR RIGHT MID LUNG AND BOTH LUNG BASES PROBABLY ON A POSTINFECTIOUS BASIS. 2. 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 CORRELATE WITH LFT's, LIPID PROFILE, AND PATIENT RISK FACTOR S.
== END | disposition home or self-care (01) ==
LOC: RADCTMAIN 11:51
PROVIDERS: ATTEND Internal Medicine Pulmonary Disease
DX: U09.9 Post COVID-19 condition, unspecified (principal); J98.4 Other disorders of lung; K76.0 Fatty (change of) liver, not elsewhere classified
CPT/HCPCS: 71250

== ENCOUNTER → 2022-09-17 | Outpatient (CLI) | payer MEDICARE ==
[2022-09-17 18:43] LABS: ALT 41 U/L (8-44); AST 41 U/L (13-35); African American GFR (CKD) 75.9 (60.0-200.0); Albumin 4.5 g/dL (3.8-4.9); Alkaline Phosphatase 94 U/L (41-126); BUN/Creat Ratio 9.78 Ratio (12.00-20.00); Blood Urea Nitrogen 9.1 mg/dL (9.0-27.0); Calcium 9.7 mg/dL (8.7-10.3); Carbon Dioxide 24.3 mmol/L (20.0-27.5); Chloride 103 mmol/L (96-109); Chol/HDL Ratio 3.97 Ratio; Globulin 3.4 g/dL (1.6-3.3); Glucose 92 mg/dL (70-110); LDL Cholesterol,Calculated 140.3 mg/dL (0.0-131.0); Non-African American GFR(CKD) 65.5 (60.0-200.0); Sodium 140 mmol/L (135-145); Total Protein 7.9 g/dL (6.2-8.2)
== END | disposition home or self-care (01) ==
LOC: LABWHC1 12:40
PROVIDERS: ATTEND Family Medicine
DX: Z00.00 Encounter for general adult medical examination without abnormal findings (principal); E78.5 Hyperlipidemia, unspecified; K76.0 Fatty (change of) liver, not elsewhere classified; E66.01 Morbid (severe) obesity due to excess calories; E55.9 Vitamin D deficiency, unspecified
CPT/HCPCS: 36415; 80053; 80061; 82306; 83036; 84443

== ENCOUNTER → 2023-09-01 | Outpatient (CLI) | payer MEDICARE ==
--- NOTE | 2023-09-02 11:51 | MR ---
EXAMINATION TYPE: MR lumbar spine wo con DATE OF EXAM: 09/01/2023 COMPARISON: None HISTORY: NO prior, chronic pain history of spinal stenosis, pain worsening over the last 6 months and radiating to bilateral buttocks CONTRAST: 0 mL intravenous Gadavist. TECHNIQUE: Multiplanar, multisequence images of the lumbar spine were acquired. FINDINGS: Cord terminates at the T12-L1 level. L5-S1: No significant disc bulge or disc herniation. Disc desiccation is present. Tiny area of left p aracentral increased signal within the disc space is present. Tiny annular tear may be present, serie s 401 image 8. No spinal canal stenosis. Moderate right foraminal stenosis is present. Left foramen is patent. Disc desiccation is present.. L4-L5: No significant disc bulge or disc herniation. Disc desiccation is present. No spinal canal sonya nosis. No foraminal stenosis. Some mild facet hypertrophy is present ligamentum flavum laxity.. L3-L4: No significant disc bulge or disc herniation. No spinal canal stenosis. No foraminal stenosi s. L2-L3: No significant disc bulge or disc herniation. No spinal canal stenosis. No foraminal stenosi s. Neural foramen are patent. L1-L2: No significant disc bulge or disc herniation. No spinal canal stenosis. No foraminal stenosi s. Neural foramen are patent. T12-L1: No significant disc bulge or disc herniation. No spinal canal stenosis. No foraminal stenos is. Neural foramen are patent. IMPRESSION: 1. Moderate right L5-S1 foraminal stenosis. Correlate with radicular symptoms. 2. Disc desiccation L4-5 and L5-S1. 3. Tiny L5-S1 annular tear may be in the left paracentral region.
== END | disposition home or self-care (01) ==
LOC: RADMRIMAIN 13:51
PROVIDERS: ATTEND Physical Medicine & Rehabilitation
DX: M48.061 Spinal stenosis, lumbar region without neurogenic claudication (principal); M99.74 Connective tissue and disc stenosis of intervertebral foramina of sacral region; M51.26 Other intervertebral disc displacement, lumbar region; M47.26 Other spondylosis with radiculopathy, lumbar region; M51.17 Intervertebral disc disorders with radiculopathy, lumbosacral region
CPT/HCPCS: 72148

== ENCOUNTER → 2023-11-05 | Outpatient (CLI) | payer MEDICARE ==
--- NOTE | 2023-11-06 08:35 | MM ---
Reason for Exam: Screening (asymptomatic). Last mammogram was performed 2 year(s) and 9 month(s) ago. Patient History: Menarche at age 12. First Full-Term at age 24. Benign Core Biopsy. Mother had breast cancer, age 53. Sister had breast cancer. Risk Values: Loraine 5 year model risk: 7.5%. NCI Lifetime model risk: 28.3%. Prior Study Comparison: 09/06/2019 Screening Mammogram, [facility]. 02/20/2021 Bilateral Screening Mammogram, [facility]. Tissue Density: There are scattered fibroglandular densities. Findings: Analyzed By CAD. There is no suspicious group of microcalcifications or new suspicious mass in either breast. Benign-appearing calcifications. Chronic nodularity in the right breast. A small focal asymmetric density central inner margin left breast for which additional imaging requested. Overall Assessment: Incomplete: need additional imaging evaluation, BI-RAD 0 Management: Special View Mammogram of the left breast. . Patient should continue monthly self-breast exams. A clinical breast exam by your physician is recommended on an annual basis. This exam should not preclude additional follow-up of suspicious palpable abnormalities. Note on Loraine scores and lifetime risk: 1. A Loraine score greater than 3% is considered moderate risk. If this is the case, consider specialist referral to assess eligibility for a risk reducing agent. 2. If overall lifetime risk for the development of breast cancer is 20% or higher, the patient may qualify for future screening with alternating mammogram and breast MRI. Electronically signed and approved by: Willie Noland M.D. Radiologis
== END | disposition home or self-care (01) ==
LOC: RADMAMWWP 13:10
PROVIDERS: ATTEND Family Medicine
DX: Z12.31 Encounter for screening mammogram for malignant neoplasm of breast (principal); Z80.3 Family history of malignant neoplasm of breast
CPT/HCPCS: 77063; 77067

== ENCOUNTER → 2023-11-05 | Outpatient (CLI) | payer MEDICARE ==
[2023-11-06 02:37] LABS: HCT 43.3 % (37.2-46.3); MCHC 32.3 g/dL (32.0-37.0); MCV 105.1 FL (80.0-97.0); Mean Platelet Volume 10.7 FL (9.5-12.2); NRBC Per 100 WBC 0 X 10*3/uL (0.00-0.01); Platelet Count 316 X 10*3/uL (140-440); RBC 4.12 X 10*6/uL (4.10-5.20); RDW 14.1 % (11.5-14.5); WBC 7.04 X 10*3/uL (4.50-10.00)
[2023-11-06 03:31] LABS: Chol/HDL Ratio 3.91 Ratio; Creatine Kinase 144 U/L (26-186); Iron 82 UG/DL (50-170); LDL Cholesterol,Calculated 135.1 mg/dL (0.0-131.0)
[2023-11-06 03:32] LABS: ALT 57 U/L (8-44); AST 52 U/L (13-35); Albumin 4.2 g/dL (3.8-4.9); Alkaline Phosphatase 89 U/L (41-126); Blood Urea Nitrogen 7.2 mg/dL (9.0-27.0); Calcium 9.9 mg/dL (8.7-10.3); Carbon Dioxide 26.7 mmol/L (21.6-31.8); Chloride 101 mmol/L (96-109); Glucose 89 mg/dL (70-110); Potassium 4.3 mmol/L (3.5-5.5); Sodium 141 mmol/L (135-145); Total Bilirubin 0.3 mg/dL (0.3-1.2); Total Protein 7.2 g/dL (6.2-8.2)
== END | disposition home or self-care (01) ==
LOC: LABWHC1 13:29
PROVIDERS: ATTEND Family Medicine
DX: Z00.00 Encounter for general adult medical examination without abnormal findings (principal); I10 Essential (primary) hypertension; E78.5 Hyperlipidemia, unspecified; E66.01 Morbid (severe) obesity due to excess calories; E55.9 Vitamin D deficiency, unspecified; Z90.3 Acquired absence of stomach [part of]
CPT/HCPCS: 36415; 80053; 80061; 82306; 82550; 82607; 82728; 83036; 83540; 84443; 85027

== ENCOUNTER → 2023-11-17 | Outpatient (CLI) | payer MEDICARE ==
--- NOTE | 2023-11-17 14:36 | MM ---
Reason for Exam: Additional evaluation requested from abnormal screening. Last screening mammogram was performed less than 1 month ago. Patient History: Menarche at age 12. First Full-Term at age 24. Benign Core Biopsy. Mother had breast cancer, age 53. Sister had breast cancer. Risk Values: Lena 5 year model risk: 7.5%. NCI Lifetime model risk: 28.3%. Prior Study Comparison: 09/06/2019 Screening Mammogram, [facility]. 02/20/2021 Bilateral Screening Mammogram, [facility]. 11/05/2023 Bilateral MG 3D screening mammo w/cad, [facility]. Tissue Density: Left: There are scattered fibroglandular densities. Findings: Analyzed By CAD. The medial asymmetric density at a middle depth on the CC view becomes less defined and has an appearance similar to the prior 2018 study. Six-month follow-up recommended given appearance on screening exam. Benign secretory and a few scattered round calcifications are redemonstrated. Microclip from prior biopsy. Overall Assessment: Probably benign, BI-RAD 3 Management: Diagnostic Mammogram of the left breast in 6 months. SEE NOTE BELOW IN REGARDS TO PATIENT'S INCREASED 5 YEAR LENA SCORE AND PATIENT'S INCREASED LIFETIME RISK SCORE. Results were given to the patient verbally at the time of exam. Patient should continue monthly self-breast exams. A clinical breast exam by your physician is recommended on an annual basis. This exam should not preclude additional follow-up of suspicious palpable abnormalities. Note on Lena scores and lifetime risk: 1. A Lena score greater than 3% is considered moderate risk. If this is the case, consider specialist referral to assess eligibility for a risk reducing agent. 2. If overall lifetime risk for the development of breast cancer is 20% or higher, the patient may qualify for future screening with alternating mammogram and breast MRI. Electronically signed and approved by: Andra Lee M.D. Radiologist
== END | disposition home or self-care (01) ==
LOC: RADMAMWWP 14:09
PROVIDERS: ATTEND Family Medicine
DX: R92.322 Mammographic fibroglandular density, left breast (principal); Z80.3 Family history of malignant neoplasm of breast
CPT/HCPCS: 77065; G0279; 77061